=== PATIENT | female | born 1995 | race Caucasian/White ===

== ENCOUNTER 2020-09-30 13:40 | Outpatient (REF) | payer MEDICAID, SELFPAY ==
[2020-09-30 17:30] LABS: MANUAL DIFF FLAG NO
[2020-09-30 17:32] LABS: Basophils Percent Auto 0.3 % (0-2); Eosinophils Percent Auto 0.4 % (0-4); Hematocrit 25.2 % (37-47); Hemoglobin 7.7 g/dl (12.0-16.0); Imm Gran Abs Auto 0.02 X10*3/uL (0.00-0.03); Imm Gran Pct Auto 0.3 % (0.0-0.4); Lymphocytes Absolute Auto 1.5 X10*3/uL (1.2-4.9); Lymphocytes Percent Auto 18.9 % (20-40); Mean Corpuscular HGB Conc 30.6 g/dl (31.0-35.0); Mean Corpuscular Hemoglobin 27.7 pg (27.0-33.0); Mean Corpuscular Volume 90.6 fL (80-98); Mean Platelet Volume 9.7 fL (9.4-12.3); Monocytes Absolute Auto 0.4 X10*3/uL (0.1-1.2); Monocytes Percent Auto 4.8 % (2-11); Neutrophils Percent Auto 75.3 % (45-73); Platelet Count 366 X10*3/uL (160-400); Red Blood Count 2.78 X10*6/uL (4.20-5.50); Red Cell Distribution Width 13.2 % (11.0-16.0)
[2020-09-30 18:22] LABS: Thyroid Stimulating Hormone 1.87 uIU/mL (0.32-4.0)
[2020-10-01 07:31] LABS: Estimated Average Glucose 103 mg/dL; Hemoglobin A1c % 5.2 %
[2020-10-02 06:39] LABS: N. gonorrhoeae RNA TMA NOT DETECTED (NOT DETECTED)
[2020-10-02 15:24] LABS: C. trachomatis RNA TMA NOT DETECTED (NOT DETECTED)
[2020-10-06 17:42] LABS: HPV 16 RNA NOT DETECTED (NOT DETECTED); HPV mRNA E6/E7 rflx Detected (Not Detected)
[2020-10-07 21:32] LABS: Testosterone, Free 7.1 pg/mL (0.1-6.4); Testosterone, Total 48 ng/dL (2-45)
== END 2020-09-30 13:41 | disposition home or self-care (01) ==
LOC: HO.LAB 13:40
PROVIDERS: PCP Family Medicine; Visit Provider Advanced Practice Midwife
DX: Z01.419 Encounter for gynecological examination (general) (routine) without abnormal findings (principal); N92.1 Excessive and frequent menstruation with irregular cycle; E66.9 Obesity, unspecified; Z87.42 Personal history of other diseases of the female genital tract
CPT/HCPCS: 36415; 81025; 83036; 84402; 84403; 84443; 85025; 87491; 87591; 87624; 87625; 88141; 88142; 99212

== ENCOUNTER 2020-10-28 15:16 | Outpatient (REF) | payer MEDICAID, SELFPAY ==
--- NOTE | 2020-10-28 15:21 | US_ITS ---
EXAMINATION: US PELVIS CLINICAL INFORMATION: Excessive and frequent menstruation. COMPARISON: Ultrasound pelvis 01/16/2016. TECHNIQUE: Transabdominal and transvaginal ultrasound of the pelvis is performed. FINDINGS: The uterus is anteverted and anteflexed measuring 10.2 cm in length, 3.6 cm in AP and 5.8 cm in transverse dimension. The endometrium is thickened measuring 1.4 cm. There is homogeneous echotexture of the uterus. There is identification of echogenic scar. There are small anechoic Nabothian cysts seen in the cervix. Right ovary measures 5.4 x 2.9 x 2.2 cm and volume 18.0 mL. There are small follicles seen. Left ovary measures 4.3 x 1.9 x 2.4 cm and volume 10.3 mL. There are small follicles visualized. There is no free fluid in the cul-de-sac. US/US pelvic complete IMPRESSION: Unremarkable uterus. Multiple small follicles in the ovaries. Ovaries are otherwise unremarkable. No free fluid in cul-de-sac.
--- NOTE | 2020-10-28 15:21 | US_ITS ---
EXAMINATION: US PELVIS CLINICAL INFORMATION: Excessive and frequent menstruation. COMPARISON: Ultrasound pelvis 01/16/2016. TECHNIQUE: Transabdominal and transvaginal ultrasound of the pelvis is performed. FINDINGS: The uterus is anteverted and anteflexed measuring 10.2 cm in length, 3.6 cm in AP and 5.8 cm in transverse dimension. The endometrium is thickened measuring 1.4 cm. There is homogeneous echotexture of the uterus. There is identification of echogenic scar. There are small anechoic Nabothian cysts seen in the cervix. Right ovary measures 5.4 x 2.9 x 2.2 cm and volume 18.0 mL. There are small follicles seen. Left ovary measures 4.3 x 1.9 x 2.4 cm and volume 10.3 mL. There are small follicles visualized. There is no free fluid in the cul-de-sac. US/US transvaginal IMPRESSION: Unremarkable uterus. Multiple small follicles in the ovaries. Ovaries are otherwise unremarkable. No free fluid in cul-de-sac.
== END 2020-10-28 15:17 | disposition home or self-care (01) ==
LOC: HO.US 15:16
PROVIDERS: PCP Family Medicine; Visit Provider Advanced Practice Midwife
DX: N92.1 Excessive and frequent menstruation with irregular cycle (principal)
CPT/HCPCS: 76830; 76856

== ENCOUNTER 2020-11-04 11:57 | Outpatient (REF) | payer MEDICAID, SELFPAY | END 2020-11-04 11:58 | disposition home or self-care (01) | LOC: HO.MDS 11:57 | PROVIDERS: PCP Family Medicine; Visit Provider Internal Medicine Medical Oncology | DX: D50.9 Iron deficiency anemia, unspecified (principal) | CPT/HCPCS: 96365; J2916 ==

== ENCOUNTER → 2020-11-11 10:59 | Outpatient (BNVA) | payer MEDICAID, SELFPAY | PROVIDERS: PCP Family Medicine; Visit Provider Advanced Practice Midwife ==

== ENCOUNTER 2020-11-12 08:57 | Outpatient (REF) | payer MEDICAID, SELFPAY | END 2020-11-12 08:58 | disposition home or self-care (01) | LOC: HO.MDS 08:57 | PROVIDERS: PCP Family Medicine; Visit Provider Internal Medicine Medical Oncology | DX: D50.9 Iron deficiency anemia, unspecified (principal) | CPT/HCPCS: 96365; J2916 ==

== ENCOUNTER 2020-11-19 09:07 | Outpatient (REF) | payer MEDICAID, SELFPAY | END 2020-11-19 09:08 | disposition home or self-care (01) | LOC: HO.MDS 09:07 | PROVIDERS: PCP Family Medicine; Visit Provider Internal Medicine Medical Oncology | DX: D50.9 Iron deficiency anemia, unspecified (principal) | CPT/HCPCS: 96365; J2916 ==

== ENCOUNTER 2020-12-03 12:58 | Outpatient (REF) | payer MEDICAID, SELFPAY | END 2020-12-03 12:59 | disposition home or self-care (01) | LOC: HO.MDS 12:58 | PROVIDERS: PCP Family Medicine; Visit Provider Internal Medicine Medical Oncology | DX: D50.9 Iron deficiency anemia, unspecified (principal) | CPT/HCPCS: 96365; J2916 ==

== ENCOUNTER 2020-12-10 08:04 | Outpatient (REF) | payer MEDICAID, SELFPAY ==
[2020-12-10 10:27] LABS: MANUAL DIFF FLAG NO
[2020-12-10 10:30] LABS: Basophils Percent Auto 0.3 % (0-2); Eosinophils Absolute Auto 0.1 X10*3/uL (0.0-0.4); Eosinophils Percent Auto 1.2 % (0-4); Hematocrit 32.9 % (37-47); Hemoglobin 9.9 g/dl (12.0-16.0); Imm Gran Abs Auto 0.01 X10*3/uL (0.00-0.03); Imm Gran Pct Auto 0.2 % (0.0-0.4); Lymphocytes Absolute Auto 1.6 X10*3/uL (1.2-4.9); Lymphocytes Percent Auto 27.6 % (20-40); Mean Corpuscular HGB Conc 30.1 g/dl (31.0-35.0); Mean Corpuscular Hemoglobin 25.3 pg (27.0-33.0); Mean Corpuscular Volume 83.9 fL (80-98); Mean Platelet Volume 8.9 fL (9.4-12.3); Monocytes Absolute Auto 0.3 X10*3/uL (0.1-1.2); Monocytes Percent Auto 5.6 % (2-11); Neutrophils Absolute Auto 3.9 X10*3/uL (2.0-8.3); Neutrophils Percent Auto 65.1 % (45-73); Platelet Count 300 X10*3/uL (160-400); Red Blood Count 3.92 X10*6/uL (4.20-5.50); Red Cell Distribution Width 20.7 % (11.0-16.0); White Blood Count 5.9 X10*3/uL (4.8-10.8)
== END 2020-12-10 08:05 | disposition home or self-care (01) ==
LOC: HO.MDS 08:04
PROVIDERS: PCP Family Medicine; Visit Provider Internal Medicine Medical Oncology
DX: D50.9 Iron deficiency anemia, unspecified (principal)
CPT/HCPCS: 36415; 85025; 96365; J2916

== ENCOUNTER 2020-12-24 13:15 | Outpatient (REF) | payer MEDICAID, SELFPAY | END 2020-12-24 13:16 | disposition home or self-care (01) | LOC: HO.MDS 13:15 | PROVIDERS: PCP Family Medicine; Visit Provider Internal Medicine Medical Oncology | DX: D50.9 Iron deficiency anemia, unspecified (principal) | CPT/HCPCS: 96365; J2916 ==

== ENCOUNTER 2021-06-11 07:54 | Emergency (ER) | payer MEDICAID, SELFPAY ==
[2021-06-11] VITALS (15 sets, daily range): BP systolic 110–141; BP diastolic 55–83; PULSE 68–102; RESP 16–22; TEMP 36.5–37.2; O2SAT 100; BMI 32.9
[2021-06-11 09:01] LABS: MANUAL DIFF FLAG NO
[2021-06-11 09:02] LABS: Basophils Percent Auto 0.2 % (0-2); Eosinophils Percent Auto 0.5 % (0-4); Imm Gran Abs Auto 0.02 X10*3/uL (0.00-0.03); Imm Gran Pct Auto 0.4 % (0.0-0.4); Lymphocytes Percent Auto 17.5 % (20-40); Mean Corpuscular Hemoglobin 16.8 pg (27.0-33.0); Mean Corpuscular Volume 67.1 fL (80-98); Monocytes Absolute Auto 0.3 X10*3/uL (0.1-1.2); Monocytes Percent Auto 5.6 % (2-11); Neutrophils Absolute Auto 4.2 X10*3/uL (2.0-8.3); Neutrophils Percent Auto 75.8 % (45-73); Platelet Count 285 X10*3/uL (160-400); Red Blood Count 2.86 X10*6/uL (4.20-5.50); Red Cell Distribution Width 19.5 % (11.0-16.0); White Blood Count 5.6 X10*3/uL (4.8-10.8)
[2021-06-11 09:13] LABS: Hemoglobin 4.8 g/dl (12.0-16.0)
[2021-06-11 09:14] LABS: Hematocrit 19.2 % (37-47)
--- NOTE | 2021-06-11 09:26 | ECG_ITS ---
Test Reason : ABNORMAL LABS Blood Pressure : / mmHG Vent. Rate : 084 BPM Atrial Rate : 084 BPM P-R Int : 122 ms QRS Dur : 078 ms QT Int : 348 ms P-R-T Axes : 038 068 010 degrees QTc Int : 411 ms Normal sinus rhythm Nonspecific T wave abnormality Abnormal ECG When compared with ECG of 30-NOV-2014 16:07, Heart rate has decreased Referred By: Anuja Nance Electronically Signed By:CECILIA TOMLINSON
[2021-06-11 09:27] LABS: HCG Quantitative < 2 mIU/mL
--- NOTE | 2021-06-11 09:35 | ED.RECABL ---
HPI - Recheck/Abnormal Lab/Rx General Chief Complaint: Recheck/Abnormal Lab/Rx <Anuja Nance PA-C - Last Filed: 06/11/21 15:29> Stated Complaint: abnormal labs <Anuja Nance PA-C - Last Filed: 06/11/21 15:29> Time Seen by Provider: 06/11/21 08:43 <Anuja Nance PA-C - Last Filed: 06/11/21 15:29> Source: patient <SOPHIA Miranda Last Filed: 06/11/21 15:29> Mode of arrival: ambulatory <Anuja Nance PA-C - Last Filed: 06/11/21 15:29> Limitations: no limitations <Anuja Nance PA-C - Last Filed: 06/11/21 15:29> History of Present Illness HPI narrative: Patient is a 25-year-old female with past med hx of PCOS, 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 Rizvi presents with low H&H. Patient states she has had consistent bleeding for 7 months, she states it only stopped for a period of 2 weeks at 1 point, she states she typically soaks a tampon and a pad between 30 and 60 minutes. She admits to dizziness, weakness, shortness of breath with exertion and headaches. She states she was supposed to get a colposcopy by Dr. Rizvi but her bleeding has been to much for him to do it. She states she has otherwise not found a reason for her bleeding. Patient states her symptoms were getting a little worse yesterday so she went to her PCP and had labs done which showed a low hemoglobin so she was sent here for blood. <Anuja Nance PA-C - Last Filed: 06/11/21 15:29> Related Data Home Medications: Home Medications Medication Instructions Recorded Confirmed ferrous sulfate 324 mg (65 mg 324 mg PO DAILY 10/28/20 10/28/20 iron) tablet,delayed release Previous Rx's Medication Instructions Recorded ferrous sulfate 325 mg (65 mg 325 mg PO DAILY #30 tab 06/11/21 iron) tablet medroxyprogesterone 10 mg tablet 10 mg PO DAILY #20 tab 06/11/21 (Provera) <Anuja Nance PA-C - Last Filed: 06/11/21 15:29> Allergies/Adverse Reactions: Allergies Allergy/AdvReac Type Severity Reaction Status Date / Time No Known Allergies Allergy Verified 11/11/20 11:00 [No Known Allergies*] <Anuja Nance PA-C - Last Filed: 06/11/21 15:29> Review of Systems Review of Systems: Yes all other systems are reviewed and are negative <Anuja Nance PA-C - Last Filed: 06/11/21 15:29> [facility] Past Medical History Medical History: Medical History (Updated 06/12/21 @ 00:01 by Radha Beyer) Gestational diabetes HTN (hypertension) Irregular periods <Anuja Nance PA-C - Last Filed: 06/11/21 15:29> Surgical History: Surgical History (Updated 10/28/20 @ 09:39 by Svetlana Briceño MD) Hx of section <Anuja Nance PA-C - Last Filed: 06/11/21 15:29> Family History Family History: Family History (Updated 10/28/20 @ 09:32 by Lianet Caraballo RN) Maternal Grandfather HTN (hypertension) Mother HTN (hypertension) Diabetes Father Diabetes HTN (hypertension) Paternal Grandmother Brain cancer HTN (hypertension) Maternal Grandmother HTN (hypertension) Paternal Aunt No problems noted. Paternal Grandmother No problems noted. Paternal Aunt No problems noted. <Anuja Nance PA-C - Last Filed: 06/11/21 15:29> Social History Social History: Social History (Updated 10/28/20 @ 09:32 by Lianet Caraballo RN) Alcohol intake: never Patient Tobacco Use Status: Never used Tobacco Substance Use Type: Marijuana Gender identity: Female <Anuja Nance PA-C - Last Filed: 06/11/21 15:29> Physical Exam Vital Signs: Vital Signs: Last Vital Signs Temp 98.8 F 06/11/21 16:17 Pulse 74 06/11/21 20:12 Resp 16 06/11/21 20:12 BP 120/83 06/11/21 20:12 Pulse Ox 100 06/11/21 20:12 Body Mass Index 32.9 <Anuja Nance PA-C - Last Filed: 06/11/21 15:29> Vital Signs: Last Vital Signs Temp 98.8 F 06/11/21 16:17 Pulse 74 06/11/21 20:12 Resp 16 06/11/21 20:12 BP 120/83 06/11/21 20:12 Pulse Ox 100 06/11/21 20:12 Body Mass Index 32.9 <JONAH Marquis-BC - Last Filed: 06/13/21 01:11> Const: General: cooperative, healthy appearing, comfortable, no acute distress and well developed <Anuja Nance PA-C - Last Filed: 06/11/21 15:29> Orientation/consciousness: patient oriented x3 <Anuja Nance PA-C - Last Filed: 06/11/21 15:29> Limitations: no limitations <Anuja Nance PA-C - Last Filed: 06/11/21 15:29> HENMT: Head: Yes normal to inspection <Anuja Nance PA-C - Last Filed: 06/11/21 15:29> Eyes: General: appearance normal, both eyes and all related structures <Anuja Nance PA-C - Last Filed: 06/11/21 15:29> Neck: Neck: Yes normal visual inspection and Yes full ROM <Anuja Nance PA-C - Last Filed: 06/11/21 15:29> Resp: Effort & Inspection: normal respiratory effort and able to speak in complete sentences <Anuja Nance PA-C - Last Filed: 06/11/21 15:29> Auscultation: clear to auscultation bilaterally <Anuja Nance PA-C - Last Filed: 06/11/21 15:29> Cardio: Rate: regular rate <Anuja Nance PA-C - Last Filed: 06/11/21 15:29> Rhythm: regular rhythm <Anuja Nance PA-C - Last Filed: 06/11/21 15:29> Heart sounds: normal S1 and S2 <Anuja Nance PA-C - Last Filed: 06/11/21 15:29> GI: Inspection: Yes normal to inspection <Anuja Nance PA-C - Last Filed: 06/11/21 15:29> Palpation (GI): Soft to palpation and nontender <Anuja Nance PA-C - Last Filed: 06/11/21 15:29> Skin: General skin exam: no rashes or lesions noted <Anuja Nance PA-C - Last Filed: 06/11/21 15:29> Neuro: General: patient oriented x3 <Anuja Nance PA-C - Last Filed: 06/11/21 15:29> Extrem: General: Yes normal to inspection <Anuja Nance PA-C - Last Filed: 06/11/21 15:29> Course Course Course Narrative: Patient is a 25-year-old female with past med hx of PCOS, 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 Rizvi presents with low H&H. VSS. Hemoglobin 4.8, Hematocrit 19.2, Type and screen pending. Will order 2 U RBC's but will likely need more. Plan on admission. Text to Dr. Rizvi. <Anuja Nance PA-C - Last Filed: 06/11/21 15:29> Reevaluation(s) Reevaluation #1: Spoke with Dr. Rizvi he, he recommended returning the hemoglobin back to 7-9, starting patient on iron and Provera, he will see in office either tomorrow or Tuesday for a biopsy and a colposcopy. <SOPHIA Miranda Last Filed: 06/11/21 15:29> Time: 10:00 <SOPHIA Miranda Last Filed: 06/11/21 15:29> Reevaluation #2: Dr. Rizvi to examine patient. After exam, Dr Rizvi stated pt's speculum exam was unremarkable, no hemmorrhage. <Anuja Nance PA-C - Last Filed: 06/11/21 15:29> Time: 11:14 <Anuja Nance PA-C - Last Filed: 06/11/21 15:29> Reevaluation #3: Patient's hemoglobin up to 7.4, will give 1 more unit RBC's then recheck CBC then likely discharge with follow-up to Dr. Rizvi tomorrow. <Anuja Nance PA-C - Last Filed: 06/11/21 15:29> Time: 15:29 <Anuja Nance PA-C - Last Filed: 06/11/21 15:29> Additional Reevaluation(s): H&H markedly improved 9.2 and 30.4. Patient reports that she is feeling better. She has an appointment with Dr. Riziv on Tuesday. Patient is going to be discharged home, however she was instructed if she will have increased vaginal bleeding or worsening symptoms to return to emergency department. <MEGAN Marquis - Last Filed: 06/13/21 01:11> MDM - Recheck/Abnormal Lab/Rx Medical Records Attestation: I reviewed the patient's medical records. <Anuja Nance PA-C - Last Filed: 06/11/21 15:29> Lab Data Attestation: I reviewed the patient's lab results. <Anuja Nance PA-C - Last Filed: 06/11/21 15:29> Result diagrams: : 06/11/21 18:29 06/11/21 08:51 <Anuja Nance PA-C - Last Filed: 06/11/21 15:29> Labs: Lab Results 06/11/21 06/11/21 06/11/21 Range/Units 08:51 08:51 08:52 WBC 5.6 (4.8-10.8) X10*3/uL RBC 2.86 L D (4.20-5.50) X10*6/uL Hgb 4.8 L* D (12.0-16.0) g/dl Hct 19.2 L* D (37-47) % MCV 67.1 L (80-98) fL MCH 16.8 L (27.0-33.0) pg MCHC 25.0 L (31.0-35.0) g/dl RDW 19.5 H (11.0-16.0) % Plt Count 285 (160-400) X10*3/uL MPV 10.0 (9.4-12.3) fL Immature Gran % (Auto) 0.4 (0.0-0.4) % Neut % (Auto) 75.8 H (45-73) % Lymph % (Auto) 17.5 L (20-40) % Mcclain % (Auto) 5.6 (2-11) % Eos % (Auto) 0.5 (0-4) % Baso % (Auto) 0.2 (0-2) % Lymph # (Auto) 1.0 L (1.2-4.9) X10*3/uL Mcclain # (Auto) 0.3 (0.1-1.2) X10*3/uL Eos # (Auto) 0.0 (0.0-0.4) X10*3/uL Baso # (Auto) 0.0 (0.0-0.2) X10*3/uL Abs Immat Gran (auto) 0.02 (0.00-0.03) X10*3/uL Absolute Neuts (auto) 4.2 (2.0-8.3) X10*3/uL Absolute Nucleated RBC 0.000 (0.0-0.012) X10*3/uL Nucleated RBC % (auto) 0.0 (0.0-0.2) /100WBC Smear Path Review SEE NOTE Sodium 138 (135-145) mmol/L Potassium 4.3 (3.3-5.1) mmol/L Chloride 107 (96-108) mmol/L Carbon Dioxide 26 (22-29) mmol/L Anion Gap 9 L (12-20) BUN 11 (9-16) mg/dL Creatinine 0.75 (0.5-1.4) mg/dL Estim Creat Clear Calc 126.9 Estimated GFR > 60 Random Glucose 105 (60-115) mg/dL Calcium 9.0 (8.4-10.2) mg/dL Total Bilirubin 0.3 (0.0-1.0) mg/dL Direct Bilirubin < 0.2 (0.0-0.5) mg/dL AST 11 D (5-31) U/L ALT 12 (0-31) U/L Alkaline Phosphatase 53 (39-117) U/L Total Protein 6.4 L (6.5-8.0) g/dL Albumin 4.0 (3.5-5.0) g/dL Beta HCG, Quant < 2 mIU/mL Chlam trachomat DNA PCR (Not Detect.) N.gonorrhoeae DNA (PCR) (Not Detect.) Blood Type O Negative Antibody Screen NEGATIVE Crossmatch See Detail 06/11/21 06/11/21 06/11/21 Range/Units 10:02 11:50 15:13 WBC 8.0 (4.8-10.8) X10*3/uL RBC 3.35 L (4.20-5.50) X10*6/uL Hgb 7.4 L D (12.0-16.0) g/dl Hct 25.1 L D (37-47) % MCV 74.9 L D (80-98) fL MCH 22.1 L (27.0-33.0) pg MCHC 29.5 L (31.0-35.0) g/dl RDW 25.6 H (11.0-16.0) % Plt Count 287 (160-400) X10*3/uL MPV 9.8 (9.4-12.3) fL Immature Gran % (Auto) (0.0-0.4) % Neut % (Auto) (45-73) % Lymph % (Auto) (20-40) % Mcclain % (Auto) (2-11) % Eos % (Auto) (0-4) % Baso % (Auto) (0-2) % Lymph # (Auto) (1.2-4.9) X10*3/uL Mcclain # (Auto) (0.1-1.2) X10*3/uL Eos # (Auto) (0.0-0.4) X10*3/uL Baso # (Auto) (0.0-0.2) X10*3/uL Abs Immat Gran (auto) (0.00-0.03) X10*3/uL Absolute Neuts (auto) (2.0-8.3) X10*3/uL Absolute Nucleated RBC 0.000 (0.0-0.012) X10*3/uL Nucleated RBC % (auto) 0.0 (0.0-0.2) /100WBC Smear Path Review Sodium (135-145) mmol/L Potassium (3.3-5.1) mmol/L Chloride (96-108) mmol/L Carbon Dioxide (22-29) mmol/L Anion Gap (12-20) BUN (9-16) mg/dL Creatinine (0.5-1.4) mg/dL Estim Creat Clear Calc Estimated GFR Random Glucose (60-115) mg/dL Calcium (8.4-10.2) mg/dL Total Bilirubin (0.0-1.0) mg/dL Direct Bilirubin (0.0-0.5) mg/dL AST (5-31) U/L ALT (0-31) U/L Alkaline Phosphatase (39-117) U/L Total Protein (6.5-8.0) g/dL Albumin (3.5-5.0) g/dL Beta HCG, Quant mIU/mL Chlam trachomat DNA PCR NOT DETECTED (Not Detect.) N.gonorrhoeae DNA (PCR) NOT DETECTED (Not Detect.) Blood Type O Negative Antibody Screen NEGATIVE Crossmatch See Detail 06/11/21 Range/Units 18:29 WBC 8.2 (4.8-10.8) X10*3/uL RBC 3.96 L (4.20-5.50) X10*6/uL Hgb 9.2 L D (12.0-16.0) g/dl Hct 30.4 L D (37-47) % MCV 76.8 L (80-98) fL MCH 23.2 L (27.0-33.0) pg MCHC 30.3 L (31.0-35.0) g/dl RDW 25.4 H (11.0-16.0) % Plt Count 268 (160-400) X10*3/uL MPV 10.5 (9.4-12.3) fL Immature Gran % (Auto) 0.4 (0.0-0.4) % Neut % (Auto) 64.9 (45-73) % Lymph % (Auto) 27.1 (20-40) % Mcclain % (Auto) 6.5 (2-11) % Eos % (Auto) 0.7 (0-4) % Baso % (Auto) 0.4 (0-2) % Lymph # (Auto) 2.2 (1.2-4.9) X10*3/uL Mcclain # (Auto) 0.5 (0.1-1.2) X10*3/uL Eos # (Auto) 0.1 (0.0-0.4) X10*3/uL Baso # (Auto) 0.0 (0.0-0.2) X10*3/uL Abs Immat Gran (auto) 0.03 (0.00-0.03) X10*3/uL Absolute Neuts (auto) 5.3 (2.0-8.3) X10*3/uL Absolute Nucleated RBC 0.000 (0.0-0.012) X10*3/uL Nucleated RBC % (auto) 0.0 (0.0-0.2) /100WBC Smear Path Review Sodium (135-145) mmol/L Potassium (3.3-5.1) mmol/L Chloride (96-108) mmol/L Carbon Dioxide (22-29) mmol/L Anion Gap (12-20) BUN (9-16) mg/dL Creatinine (0.5-1.4) mg/dL Estim Creat Clear Calc Estimated GFR Random Glucose (60-115) mg/dL Calcium (8.4-10.2) mg/dL Total Bilirubin (0.0-1.0) mg/dL Direct Bilirubin (0.0-0.5) mg/dL AST (5-31) U/L ALT (0-31) U/L Alkaline Phosphatase (39-117) U/L Total Protein (6.5-8.0) g/dL Albumin (3.5-5.0) g/dL Beta HCG, Quant mIU/mL Chlam trachomat DNA PCR (Not Detect.) N.gonorrhoeae DNA (PCR) (Not Detect.) Blood Type Antibody Screen Crossmatch <Anuja Nance PA-C - Last Filed: 06/11/21 15:29> Lab Results 06/11/21 06/11/21 06/11/21 Range/Units 08:51 08:51 08:52 WBC 5.6 (4.8-10.8) X10*3/uL RBC 2.86 L D (4.20-5.50) X10*6/uL Hgb 4.8 L* D (12.0-16.0) g/dl Hct 19.2 L* D (37-47) % MCV 67.1 L (80-98) fL MCH 16.8 L (27.0-33.0) pg MCHC 25.0 L (31.0-35.0) g/dl RDW 19.5 H (11.0-16.0) % Plt Count 285 (160-400) X10*3/uL MPV 10.0 (9.4-12.3) fL Immature Gran % (Auto) 0.4 (0.0-0.4) % Neut % (Auto) 75.8 H (45-73) % Lymph % (Auto) 17.5 L (20-40) % Mcclain % (Auto) 5.6 (2-11) % Eos % (Auto) 0.5 (0-4) % Baso % (Auto) 0.2 (0-2) % Lymph # (Auto) 1.0 L (1.2-4.9) X10*3/uL Mcclain # (Auto) 0.3 (0.1-1.2) X10*3/uL Eos # (Auto) 0.0 (0.0-0.4) X10*3/uL Baso # (Auto) 0.0 (0.0-0.2) X10*3/uL Abs Immat Gran (auto) 0.02 (0.00-0.03) X10*3/uL Absolute Neuts (auto) 4.2 (2.0-8.3) X10*3/uL Absolute Nucleated RBC 0.000 (0.0-0.012) X10*3/uL Nucleated RBC % (auto) 0.0 (0.0-0.2) /100WBC Smear Path Review SEE NOTE Sodium 138 (135-145) mmol/L Potassium 4.3 (3.3-5.1) mmol/L Chloride 107 (96-108) mmol/L Carbon Dioxide 26 (22-29) mmol/L Anion Gap 9 L (12-20) BUN 11 (9-16) mg/dL Creatinine 0.75 (0.5-1.4) mg/dL Estim Creat Clear Calc 126.9 Estimated GFR > 60 Random Glucose 105 (60-115) mg/dL Calcium 9.0 (8.4-10.2) mg/dL Total Bilirubin 0.3 (0.0-1.0) mg/dL Direct Bilirubin < 0.2 (0.0-0.5) mg/dL AST 11 D (5-31) U/L ALT 12 (0-31) U/L Alkaline Phosphatase 53 (39-117) U/L Total Protein 6.4 L (6.5-8.0) g/dL Albumin 4.0 (3.5-5.0) g/dL Beta HCG, Quant < 2 mIU/mL Chlam trachomat DNA PCR (Not Detect.) N.gonorrhoeae DNA (PCR) (Not Detect.) Blood Type O Negative Antibody Screen NEGATIVE Crossmatch See Detail 06/11/21 06/11/21 06/11/21 Range/Units 10:02 11:50 15:13 WBC 8.0 (4.8-10.8) X10*3/uL RBC 3.35 L (4.20-5.50) X10*6/uL Hgb 7.4 L D (12.0-16.0) g/dl Hct 25.1 L D (37-47) % MCV 74.9 L D (80-98) fL MCH 22.1 L (27.0-33.0) pg MCHC 29.5 L (31.0-35.0) g/dl RDW 25.6 H (11.0-16.0) % Plt Count 287 (160-400) X10*3/uL MPV 9.8 (9.4-12.3) fL Immature Gran % (Auto) (0.0-0.4) % Neut % (Auto) (45-73) % Lymph % (Auto) (20-40) % Mcclain % (Auto) (2-11) % Eos % (Auto) (0-4) % Baso % (Auto) (0-2) % Lymph # (Auto) (1.2-4.9) X10*3/uL Mcclain # (Auto) (0.1-1.2) X10*3/uL Eos # (Auto) (0.0-0.4) X10*3/uL Baso # (Auto) (0.0-0.2) X10*3/uL Abs Immat Gran (auto) (0.00-0.03) X10*3/uL Absolute Neuts (auto) (2.0-8.3) X10*3/uL Absolute Nucleated RBC 0.000 (0.0-0.012) X10*3/uL Nucleated RBC % (auto) 0.0 (0.0-0.2) /100WBC Smear Path Review Sodium (135-145) mmol/L Potassium (3.3-5.1) mmol/L Chloride (96-108) mmol/L Carbon Dioxide (22-29) mmol/L Anion Gap (12-20) BUN (9-16) mg/dL Creatinine (0.5-1.4) mg/dL Estim Creat Clear Calc Estimated GFR Random Glucose (60-115) mg/dL Calcium (8.4-10.2) mg/dL Total Bilirubin (0.0-1.0) mg/dL Direct Bilirubin (0.0-0.5) mg/dL AST (5-31) U/L ALT (0-31) U/L Alkaline Phosphatase (39-117) U/L Total Protein (6.5-8.0) g/dL Albumin (3.5-5.0) g/dL Beta HCG, Quant mIU/mL Chlam trachomat DNA PCR NOT DETECTED (Not Detect.) N.gonorrhoeae DNA (PCR) NOT DETECTED (Not Detect.) Blood Type O Negative Antibody Screen NEGATIVE Crossmatch See Detail 06/11/21 Range/Units 18:29 WBC 8.2 (4.8-10.8) X10*3/uL RBC 3.96 L (4.20-5.50) X10*6/uL Hgb 9.2 L D (12.0-16.0) g/dl Hct 30.4 L D (37-47) % MCV 76.8 L (80-98) fL MCH 23.2 L (27.0-33.0) pg MCHC 30.3 L (31.0-35.0) g/dl RDW 25.4 H (11.0-16.0) % Plt Count 268 (160-400) X10*3/uL MPV 10.5 (9.4-12.3) fL Immature Gran % (Auto) 0.4 (0.0-0.4) % Neut % (Auto) 64.9 (45-73) % Lymph % (Auto) 27.1 (20-40) % Mcclain % (Auto) 6.5 (2-11) % Eos % (Auto) 0.7 (0-4) % Baso % (Auto) 0.4 (0-2) % Lymph # (Auto) 2.2 (1.2-4.9) X10*3/uL Mcclain # (Auto) 0.5 (0.1-1.2) X10*3/uL Eos # (Auto) 0.1 (0.0-0.4) X10*3/uL Baso # (Auto) 0.0 (0.0-0.2) X10*3/uL Abs Immat Gran (auto) 0.03 (0.00-0.03) X10*3/uL Absolute Neuts (auto) 5.3 (2.0-8.3) X10*3/uL Absolute Nucleated RBC 0.000 (0.0-0.012) X10*3/uL Nucleated RBC % (auto) 0.0 (0.0-0.2) /100WBC Smear Path Review Sodium (135-145) mmol/L Potassium (3.3-5.1) mmol/L Chloride (96-108) mmol/L Carbon Dioxide (22-29) mmol/L Anion Gap (12-20) BUN (9-16) mg/dL Creatinine (0.5-1.4) mg/dL Estim Creat Clear Calc Estimated GFR Random Glucose (60-115) mg/dL Calcium (8.4-10.2) mg/dL Total Bilirubin (0.0-1.0) mg/dL Direct Bilirubin (0.0-0.5) mg/dL AST (5-31) U/L ALT (0-31) U/L Alkaline Phosphatase (39-117) U/L Total Protein (6.5-8.0) g/dL Albumin (3.5-5.0) g/dL Beta HCG, Quant mIU/mL Chlam trachomat DNA PCR (Not Detect.) N.gonorrhoeae DNA (PCR) (Not Detect.) Blood Type Antibody Screen Crossmatch <Paula Ayoub, W[employer]IFIER OPERATOR-BC - Last Filed: 06/13/21 01:11> ECG Data Attestation: I personally reviewed and interpreted this ECG as follows: <Anuja Nance PA-C - Last Filed: 06/11/21 15:29> ECG interpretation date: 06/11/21 <Anuja Nance PA-C - Last Filed: 06/11/21 15:29> ECG interpretation time: 10:33 <Anuja Nance PA-C - Last Filed: 06/11/21 15:29> Prior ECG tracings: not available for review <Anuja Nance PA-C - Last Filed: 06/11/21 15:29> Interpretation: NSR 84bpm, no acute ST or T-wave changes <Anuja Nance PA-C - Last Filed: 06/11/21 15:29> Discharge Plan Discharge Clinical Impression: Abnormal vaginal bleeding, Anemia <Anuja Nance PA-C - Last Filed: 06/11/21 15:29> Patient Disposition: Home, Self-Care <Anuja Nance PA-C - Last Filed: 06/11/21 15:29> Instructions: Anemia (ED) <Anuja Nance PA-C - Last Filed: 06/11/21 15:29> Additional Instructions: I have sent a prescription for iron pills and a control pill by the name of Provera to your pharmacy, please start taking each 1 of these pills daily. Please be sure to follow up with Dr. Rizvi tomorrow, he is aware of your issue and would like to do a biopsy and colposcopy on you RUBINA. If you feel weak, dizzy, short of breath or have chest pain, please return to the emergency department. <Anuja Nance PA-C - Last Filed: 06/11/21 15:29> Prescriptions: New ferrous sulfate 325 mg (65 mg iron) tablet 325 mg PO DAILY Qty: 30 RF: 0 medroxyprogesterone [Provera] 10 mg tablet 10 mg PO DAILY Qty: 20 RF: 0 No Action ferrous sulfate 324 mg (65 mg iron) tablet,delayed release (DR/EC) 324 mg PO DAILY RF: 0 <Anuja Nance PA-C - Last Filed: 06/11/21 15:29> Referrals: Hermes Rizvi MD [Physician] - 1 day (bx, colpo and follow up for vag bleeding) <Anuja Nance PA-C - Last Filed: 06/11/21 15:29> Interventions: ED Discharge Assessment Last Done: 06/11/21 20:16 <Anuja Nance PA-C - Last Filed: 06/11/21 15:29> Discharge Date/Time: 06/11/21 20:18 <Anuja Nance PA-C - Last Filed: 06/11/21 15:29>
[2021-06-11 09:40] LABS: Alanine Aminotransferase 12 U/L (0-31); Alkaline Phosphatase 53 U/L (39-117); Anion Gap 9 (12-20); Aspartate Amino Transferase 11 U/L (5-31); Bilirubin Direct < 0.2 mg/dL (0.0-0.5); Bilirubin Total 0.3 mg/dL (0.0-1.0); Blood Urea Nitrogen 11 mg/dL (9-16); Carbon Dioxide 26 mmol/L (22-29); Chloride 107 mmol/L (96-108); Creatinine Clr Calc Pharmacy 126.9; Estimated Glomerular Filt Rate > 60; Glucose Random 105 mg/dL (60-115); Potassium 4.3 mmol/L (3.3-5.1); Sodium 138 mmol/L (135-145); Total Protein 6.4 g/dL (6.5-8.0)
--- NOTE | 2021-06-11 10:16 | P.CONOB_ITS ---
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 Patient was seen in the office by a Pat Villar CNM in September of 2020 her H&H then was 7.7/25.2, ultrasound was unremarkable, Pap smear showed low-grade JOSHUA/HPV positive. The patient was scheduled for colposcopy and further discussion of options of treatment but did not show up for her appointment. Since then the patient has had multiple iron transfusion by Hematology and is continuously having vaginal bleeding with passage of blood clots and abdominal cramping. In the emergency room today H&H was 4.8/19.2, the patient so her PCP yesterday, she was started on Provera 10 mg p.o. q.d. which she started today and is currently having minimal to no vaginal bleeding cc:: CC: RFID SYSTEMS ARCHITECT - Review of Systems Review of Systems ROS Unobtainable: All systems reviewed & are unremarkable except as noted in HPI and below Cardiovascular: Denies Palpatations, Loss of consciousness or Chest pain Respiratory: Denies Cough, Wheezing or Shortness of breath Musculoskeletal: Denies Low back pain Gastrointestinal: Denies Heartburn, Constipation, Diarrhea, Nausea or Vomiting Genitourinary: Denies Pain with urination, Burning with urination or Urinary frequency Neurological: Denies Migranes Psychological: Denies Depression OB [facility] Past Medical History Medical History (Updated 06/11/21 @ 11:25 by Hermes Rizvi MD) Gestational diabetes HTN (hypertension) Irregular periods Family History Family History (Updated 10/28/20 @ 09:32 by Lianet Caraballo RN) Maternal Grandfather HTN (hypertension) Mother HTN (hypertension) Diabetes Father Diabetes HTN (hypertension) Paternal Grandmother Brain cancer HTN (hypertension) Maternal Grandmother HTN (hypertension) Paternal Aunt No problems noted. Paternal Grandmother No problems noted. Paternal Aunt No problems noted. Surgical History Surgical History (Updated 10/28/20 @ 09:39 by Svetlana Briceño MD) Hx of section Social History Social History (Updated 10/28/20 @ 09:32 by Lianet Caraballo RN) Alcohol intake: never Patient Tobacco Use Status: Never used Tobacco Use of substances other than those prescribed or required for medical reasons: Yes Substance Use Type: Marijuana Advance Directives: No Advance Directives Information Provided: No Patient : No Gender identity: Female Meds Allergies Allergy/AdvReac Type Severity Reaction Status Date / Time No Known Allergies Allergy Verified 11/11/20 11:00 [No Known Allergies*] Home Medications Medication Instructions Recorded Confirmed Last Taken Type ferrous sulfate 324 mg (65 mg 324 mg PO DAILY 10/28/20 10/28/20 Unknown History iron) tablet,delayed release BUDGET AND POLICY ANALYST Physical Exam Vitals Vital signs: Temp Pulse Resp BP Pulse Ox 98.8 F 90 16 127/73 100 06/11/21 08:28 06/11/21 08:28 06/11/21 08:28 06/11/21 08:28 06/11/21 08:28 Body Mass Index 32.9 Constitutional General Appearance: Healthy appearing, Well-nourished and Well-developed Psychiatric Mood and Affect: active and alert, normal mood and normal affect Skin Appearance: No rashes and No lesions Lungs Respiratory Effort: No intercostal retractions Auscultation: Clear to auscultation Cardiovascular Auscultation: RRR Abdomen Auscultation/Inspection/Palpation: Normal bowel sounds, Soft, Non-distended and No tenderness Female Genitalia (Pelvic) Bladder/Urethra: Normal meatus Vulva: No lesions Vagina: Nontender, No erythema and Normal discharge Cervix: Grossly normal Uterus: Normal size Adnexa/Parametria: Adnexal Tenderness: None (No vaginal bleeding) BUDGET AND POLICY ANALYST - Results Labs CBC & Chem 7: 06/11/21 08:52 06/11/21 08:51 Labs: Short CBC 06/11/21 Range/Units 08:52 WBC 5.6 (4.8-10.8) X10*3/uL Hgb 4.8 L* D (12.0-16.0) g/dl Hct 19.2 L* D (37-47) % Plt Count 285 (160-400) X10*3/uL BMP 06/11/21 08:51 Sodium 138 Potassium 4.3 Chloride 107 Carbon Dioxide 26 BUN 11 Creatinine 0.75 Calcium 9.0 Liver Function 06/11/21 Range/Units 08:51 Total Bilirubin 0.3 (0.0-1.0) mg/dL Direct Bilirubin < 0.2 (0.0-0.5) mg/dL AST 11 D (5-31) U/L ALT 12 (0-31) U/L Alkaline Phosphatase 53 (39-117) U/L Albumin 4.0 (3.5-5.0) g/dL Antibody Screen Antibody Screen NEGATIVE 06/11/21 08:51 Assessment and Plan (1) Menometrorrhagia: Status: Acute Discussed with the patient the treatment including cyclic Provera, Lyst madhav,? control pills, Mirena IUD. All pros, cons, risks and benefits if each option was discussed with the patient and the patient decided to go ahead with Mirena IUD so a more detailed discussion about it was conducted including mechanism of action, risks (uterine perforation, infection, injury to bladder, bowel, displacement, and others) benefits (hypo menorrhea, amenorrhea, ...). GC/CT were taken and the patient will be scheduled for IUD insertion in the office. Since the patient has no vaginal bleeding today, Recommended for the patient to continue Provera 10 mg p.o. q.d. follow-up in the office in the coming 2 days, for endometrial biopsy to rule out endometrial pathology including hyperplasia malignancy or atypia and Mirena IUD insertion (2) Anemia: Qualifiers: Anemia type: unspecified type Qualified Code(s): D64.9 - Anemia, unspecified Status: Acute Recommend to transfuse the patient with 2 units of packed RBCs, repeat CBC after transfusion, if the patient is stable, she is to be discharged home on iron sulfate 325 mg p.o. t.i.d. (3) LGSIL (low grade squamous intraepithelial dysplasia): Status: Acute Discussed with the patient the result of her abnormal pap, its significance, risk of progression, persistence, and regression if untreated. the false positive/negative rate being a screening test, the need for diagnostic test -colposcopy, biopsy, endocervical curettage.? The patient verbalized understanding and agreed with the plan, all questions answered.
--- NOTE | 2021-06-11 11:17 | PC.NURSE ---
DORIAN JACOBSON PERFORMING PELVIC EXAM IN A DIFFERENT ROOM WITH PLANNING AND ANALYSIS MANAGER.
[2021-06-11 13:28] LABS: CT PCR NOT DETECTED (Not Detect.); NG PCR NOT DETECTED (Not Detect.)
[2021-06-11 15:19] LABS: Hematocrit 25.1 % (37-47); Hemoglobin 7.4 g/dl (12.0-16.0); Mean Corpuscular HGB Conc 29.5 g/dl (31.0-35.0); Mean Corpuscular Hemoglobin 22.1 pg (27.0-33.0); Mean Corpuscular Volume 74.9 fL (80-98); Mean Platelet Volume 9.8 fL (9.4-12.3); Platelet Count 287 X10*3/uL (160-400); Red Blood Count 3.35 X10*6/uL (4.20-5.50); Red Cell Distribution Width 25.6 % (11.0-16.0)
[2021-06-11 18:34] LABS: MANUAL DIFF FLAG NO
[2021-06-11 18:38] LABS: Basophils Percent Auto 0.4 % (0-2); Eosinophils Absolute Auto 0.1 X10*3/uL (0.0-0.4); Eosinophils Percent Auto 0.7 % (0-4); Hematocrit 30.4 % (37-47); Hemoglobin 9.2 g/dl (12.0-16.0); Imm Gran Abs Auto 0.03 X10*3/uL (0.00-0.03); Imm Gran Pct Auto 0.4 % (0.0-0.4); Lymphocytes Absolute Auto 2.2 X10*3/uL (1.2-4.9); Lymphocytes Percent Auto 27.1 % (20-40); Mean Corpuscular HGB Conc 30.3 g/dl (31.0-35.0); Mean Corpuscular Hemoglobin 23.2 pg (27.0-33.0); Mean Corpuscular Volume 76.8 fL (80-98); Mean Platelet Volume 10.5 fL (9.4-12.3); Monocytes Absolute Auto 0.5 X10*3/uL (0.1-1.2); Monocytes Percent Auto 6.5 % (2-11); Neutrophils Absolute Auto 5.3 X10*3/uL (2.0-8.3); Neutrophils Percent Auto 64.9 % (45-73); Platelet Count 268 X10*3/uL (160-400); Red Blood Count 3.96 X10*6/uL (4.20-5.50); Red Cell Distribution Width 25.4 % (11.0-16.0); White Blood Count 8.2 X10*3/uL (4.8-10.8)
== END 2021-06-11 20:18 | disposition home or self-care (01) ==
PROVIDERS: Emergency Medicine; Obstetrics & Gynecology; Physician Assistant; Emergency Provider Emergency Medicine Emergency Medical Services; PCP Family Medicine
DX: N92.1 Excessive and frequent menstruation with irregular cycle (principal); C71.1 Malignant neoplasm of frontal lobe; D64.9 Anemia, unspecified; N93.8 Other specified abnormal uterine and vaginal bleeding; F12.90 Cannabis use, unspecified, uncomplicated; Z79.899 Other long term (current) drug therapy
CPT/HCPCS: 36415; 36430; 80048; 80076; 84702; 85025; 85027; 86850; 86900; 86901; 86923; 87491; 87591; 93005; 99285; P9016

== ENCOUNTER 2021-06-16 13:56 | Outpatient (REF) | payer MEDICAID, SELFPAY | END 2021-06-16 13:57 | disposition home or self-care (01) | LOC: HO.LAB 13:56 | PROVIDERS: PCP Family Medicine; Visit Provider Obstetrics & Gynecology | DX: Z30.430 Encounter for insertion of intrauterine contraceptive device (principal); R87.612 Low grade squamous intraepithelial lesion on cytologic smear of cervix (LGSIL); N92.1 Excessive and frequent menstruation with irregular cycle; D64.9 Anemia, unspecified | CPT/HCPCS: 57454; 58100; 58110; 58300; 88305; 99212; J7298 ==

== ENCOUNTER → 2021-06-23 11:58 | Outpatient (BNVA) | payer MEDICAID, SELFPAY | PROVIDERS: PCP Family Medicine; Visit Provider Obstetrics & Gynecology ==

== ENCOUNTER → 2021-08-12 09:19 | Outpatient (BNVA) | payer MEDICAID, SELFPAY | PROVIDERS: PCP Family Medicine; Visit Provider Obstetrics & Gynecology | DX: Z30.431 Encounter for routine checking of intrauterine contraceptive device (principal); D64.9 Anemia, unspecified | CPT/HCPCS: 99212 ==

== ENCOUNTER → 2021-09-15 09:53 | Outpatient (BNVA) | payer MEDICAID, SELFPAY | PROVIDERS: PCP Family Medicine; Visit Provider Obstetrics & Gynecology | DX: N87.0 Mild cervical dysplasia (principal) | CPT/HCPCS: 99212 ==

== ENCOUNTER 2021-09-18 06:56 | Day surgery (SDC) | payer MEDICAID, SELFPAY ==
--- NOTE | 2021-09-17 09:08 | P.CONAN_ITS ---
Documented by User: Priscilla Maynard NP 09/17/21 09:10 HPI - Anesthesia Eval Consult details Narrative: 25yo F for LEEP PMFSH Active Problems Active Problems: All Active Problems (Updated 09/14/21 @ 10:33 by Halima Guo, APOLINAR) Well woman exam with routine gynecological exam (Acute) Menometrorrhagia (Acute) Obesity (BMI 30.0-34.9) (Acute) Hx of abnormal cervical Pap smear (Acute) Anemia (Acute) PCOS (polycystic ovarian syndrome) (Acute) LGSIL (low grade squamous intraepithelial dysplasia) (Acute) Encounter for IUD insertion (Acute) AMINAH I (cervical intraepithelial neoplasia I) (Acute) IUD check up (Acute) Past Medical History Medical History Anemia Gestational diabetes HTN (hypertension) Irregular periods Family History Family History Maternal Grandfather HTN (hypertension) Mother HTN (hypertension) Diabetes Father Diabetes HTN (hypertension) Paternal Grandmother Brain cancer HTN (hypertension) Maternal Grandmother HTN (hypertension) Paternal Aunt No problems noted. Paternal Grandmother No problems noted. Paternal Aunt No problems noted. Surgical History Surgical History Hx of section Social History Social History (Updated 09/18/21 @ 08:19 by Trish Concepcion MD) Alcohol intake: never Patient Tobacco Use Status: Never used Tobacco Use of substances other than those prescribed or required for medical reasons: Yes Substance Use Type: Marijuana Last Used Substance: Hours (ago) Are you DNR?: No Advance Directives: No Advance Directives Information Provided: No Gender identity: Female Meds Allergies Allergy/AdvReac Type Severity Reaction Status Date / Time No Known Allergies Allergy Verified 09/14/21 10:33 [No Known Allergies*] Home Medications Medication Instructions Recorded Confirmed Last Taken Type ferrous sulfate 324 mg (65 mg 324 mg PO DAILY 10/28/20 09/14/21 Unknown History iron) tablet,delayed release levonorgestrel 20 mcg/24 hours (7 INTRAUTERINE 08/12/21 Unknown History yrs) 52 mg intrauterine device (Mirena) cetirizine 10 mg tablet 1 tab PO DAILY 09/14/21 09/14/21 Unknown History fluticasone propionate 50 spray INTRANASAL 09/14/21 09/14/21 Unknown History mcg/actuation nasal spray,suspension Exam Exam Date and Time: September 17, [id number] Pertinent Lab Results Pertinent Lab Results: Laboratory Tests 06/11/21 06/11/21 08:51 18:29 WBC 8.2 Hgb 9.2 L D Hct 30.4 L D Plt Count 268 Sodium 138 Potassium 4.3 Chloride 107 Carbon Dioxide 26 BUN 11 Creatinine 0.75 Narrative Narrative: EKG 06/2021 Vent. Rate : 084 BPM ? ? Atrial Rate : 084 BPM ?? P-R Int : 122 ms? QRS Dur : 078 ms ? ? QT Int : 348 ms ? ? ? P-R-T Axes : 038 068 010 degrees ?? QTc Int : 411 ms ? Normal sinus rhythm Nonspecific T wave abnormality Abnormal ECG When compared with ECG of 30-NOV-2014 16:07, Heart rate has decreased Assessment and Plan Assessment Anesthesia Assessment: Chart Reviewed Documented by User: Trish Concepcion MD 09/18/21 08:20 [facility] Active Problems Active Problems: All Active Problems (Updated 09/14/21 @ 10:33 by Halima Guo RN) Well woman exam with routine gynecological exam (Acute) Menometrorrhagia (Acute) Obesity (BMI 30.0-34.9) (Acute) Hx of abnormal cervical Pap smear (Acute) Anemia (Acute). Admitted 06/11/21 with Hct of 19.2 thought to be secondary to menorrhagia. Received 3 units of PRBC. PCOS (polycystic ovarian syndrome) (Acute) LGSIL (low grade squamous intraepithelial dysplasia) (Acute) Encounter for IUD insertion (Acute) AMINAH I (cervical intraepithelial neoplasia I) (Acute) IUD check up (Acute) Past Medical History Medical History Anemia Gestational diabetes HTN (hypertension) Irregular periods Family History Family History Maternal Grandfather HTN (hypertension) Mother HTN (hypertension) Diabetes Father Diabetes HTN (hypertension) Paternal Grandmother Brain cancer HTN (hypertension) Maternal Grandmother HTN (hypertension) Paternal Aunt No problems noted. Paternal Grandmother No problems noted. Paternal Aunt No problems noted. Family history of problems with anesthesia: No Surgical History Surgical History Hx of section History of Problems with Anesthesia: No Social History Social History (Updated 09/18/21 @ 08:19 by Trish Concepcion MD) Alcohol intake: never Patient Tobacco Use Status: Never used Tobacco Use of substances other than those prescribed or required for medical reasons: Yes Substance Use Type: Marijuana Last Used Substance: Hours (ago) Are you DNR?: No Advance Directives: No Advance Directives Information Provided: No Gender identity: Female Meds Allergies Allergy/AdvReac Type Severity Reaction Status Date / Time No Known Allergies Allergy Verified 09/14/21 10:33 [No Known Allergies*] Home Medications Medication Instructions Recorded Confirmed Last Taken Type ferrous sulfate 324 mg (65 mg 324 mg PO DAILY 10/28/20 09/14/21 Unknown History iron) tablet,delayed release levonorgestrel 20 mcg/24 hours (7 INTRAUTERINE 08/12/21 Unknown History yrs) 52 mg intrauterine device (Mirena) cetirizine 10 mg tablet 1 tab PO DAILY 09/14/21 09/14/21 Unknown History fluticasone propionate 50 spray INTRANASAL 09/14/21 09/14/21 Unknown History mcg/actuation nasal spray,suspension Exam Height,Weight and Vital Signs: Height 5 ft 4 in Weight 88.451 kg Vital Signs Temp Pulse Resp BP Pulse Ox 09/18/21 07:25 97.6 F 89 16 125/79 96 Pertinent Lab Results Pertinent Lab Results: Laboratory Tests 06/11/21 06/11/21 08:51 18:29 WBC 8.2 Hgb 9.2 L D Hct 30.4 L D Plt Count 268 Sodium 138 Potassium 4.3 Chloride 107 Carbon Dioxide 26 BUN 11 Creatinine 0.75 Lab Results 09/18/21 09/18/21 Range/Units 07:09 08:10 POC Hgb (Calc) 14.6 (12.0-16.0) g/dL POC Hct 43 (37-47) %PCV POC Std Base Excess 9 H (-3-3) mmol/L POC O2 Sat (Calc) TNP POC ABG Total CO2 34 H (24-29) mmol/L POC Capillary pH 7.43 (7.35-7.45) POC Capillary pCO2 49 H (35-48) mmhg POC Cap HCO3 (Calc) 33 H (22-26) mmol/L POC Sodium 138 (135-145) mmol/L POC Potassium 4.3 (3.3-5.1) mmol/L POC Glucose 110 (60-115) mg/dL Urine Test NEGATIVE (NEGATIVE) Airway Mallampati Class: II TM Dist: >3cm Neck ROM: Full Loose/Missing/Broken Teeth: No Heart: RRR Lungs: CTAB Assessment and Plan Assessment Anesthesia Assessment: Anesthesia Plan Discussed Final Anesthetic Review Family History of Problems with Anesthesia: No History of Problems with Anesthesia: No NPO: Yes ASA Class: II Final Preanesthetic Review: No Changes in Pt Med Stat, Meds/Allgs Chart Reviewed, Consent Obtained/Reviewed and Anes Risks/Benef Reviewed Patient Risk: Low Procedure Risk: Low Assessment/Block/Sedation in SS: Assess/Block/Sedation-SS Anesthetic Plan Anesthetic Plan: GA Disposition: Standard PACU
[2021-09-18 07:14] VITALS: BMI 33.5
[2021-09-18 07:25] VITALS: BP 125/79; PULSE 89; RESP 16; TEMP 36.4; O2SAT 96
[2021-09-18 07:56] LABS: UPreg QC Valid YES; Urine Pregnancy NEGATIVE (NEGATIVE)
[2021-09-18 08:16] LABS: Base Excess Bedside Calculated 9 mmol/L (-3-3); Glucose, i-STAT 110 mg/dL (60-115); HCO3 Bedside Calculated 33 mmol/L (22-26); Hematocrit Bedside 43 %PCV (37-47); Hemoglobin Bedside 14.6 g/dL (12.0-16.0); Potassium Bedside 4.3 mmol/L (3.3-5.1); Sodium Bedside 138 mmol/L (135-145); TCO2 Bedside 34 mmol/L (24-29); pCO2 Bedside 49 mmhg (35-48); pH Bedside 7.43 (7.35-7.45)
--- NOTE | 2021-09-18 08:22 | MHC.SHP ---
Pre-Procedural Eval Section A Date of Service: 09/18/21 The patient is an INPATIENT: No Changes since office visit: No Cold of Flu in the past 2 weeks, No New Medical Problems, No Changes in Medication and No Patient answered all questions The History & Physical has been completed within 30 days and I have reviewed it.: Yes Section B Chief Complaint: marietta 1 Allergies: Allergies Allergy/AdvReac Type Severity Reaction Status Date / Time No Known Allergies Allergy Verified 09/14/21 10:33 [No Known Allergies*] Plan Diagnosis/Plan: Unchanged I have reviewed the history and physical and performed a pertinent physical examination on my patient. No changes have occurred unless specified.
--- NOTE | 2021-09-18 08:53 | P.BOP_ITS ---
Brief Operative Note Date of Service: 09/19/20 Pre-op diagnosis: Persistent AMINAH 1 12 and 01:00 o'clock Procedure: Loop electrical excision procedure Surgeon: Hermes Rizvi MD Anesthesia: MAC Was an Real Estate Services Coordinator used for this Procedure?: No Estimated blood loss (mL): 0 Pathology: none sent (Anterior cervical lip) Condition: stable Disposition: PACU
--- NOTE | 2021-09-18 08:54 | W.PM.OPN ---
Operative Note Operative Note Date of Service: 09/19/20 Narrative: Preop diagnosis: Persistent AMINAH 1 at 12 and 01:00 o'clock Operation: LEEP loop electrical excision procedure Post op diagnosis: same Anesthesia: paracervical block Complications: none Pathology: Anterior cervical lip QBL: minimal Procedure: The patient was put in the dorsal lithotomy position, was prepped and draped in the usual sterile fashion. A sterile speculum was inserted inside the patient vagina. Using Lugol solution the cervix with Dyed with Lugol solution to identifiy the abnormal demarcating line. 10 cc of Marcaine0.5% with epinephrine were given at 2, 4 , 8, and 10 o'clock. Using a medium-size loop wire, the anterior cervical lip was excised. Hemostasis was assured using cautery and Monsel solution. All instruments were taken out of the patient's vaginal cavity. the patient tolerated the procedure well and was discharged home with the following instructions: call if temperature is above 100.4, vaginal bleeding, abdominal pain or nausea or vomiting. Follow-up in the office in 2 weeks for postop visit
[2021-09-18 09:03] VITALS: BP 124/74; PULSE 86; RESP 16; TEMP 36.3; O2SAT 98
[2021-09-18 09:08] VITALS: BP 120/71; PULSE 83; RESP 16; O2SAT 97
[2021-09-18 09:13] VITALS: BP 123/88; PULSE 80; RESP 16; O2SAT 97
[2021-09-18 09:18] VITALS: BP 121/71; PULSE 69; RESP 16; TEMP 36.3; O2SAT 97
[2021-09-18 13:59] LABS: pO2 Bedside < 50 mmhg (83-108)
== END 2021-09-18 09:59 | disposition home or self-care (01) ==
PROVIDERS: Nurse Practitioner; PCP Family Medicine; Visit Provider Obstetrics & Gynecology
PROC: 0UBC7ZZ Excision of Cervix, Via Natural or Artificial Opening (ICD-10-PCS; CPT 57522; principal; 2021-09-18 08:30)
DX: N87.0 Mild cervical dysplasia (principal); N92.6 Irregular menstruation, unspecified; Z98.891 History of uterine scar from previous surgery; D64.9 Anemia, unspecified; I10 Essential (primary) hypertension; F12.90 Cannabis use, unspecified, uncomplicated
CPT/HCPCS: 57522; 81025; 88305; 88307; J2250; J2405; J3010

== ENCOUNTER → 2021-10-01 11:22 | Outpatient (BNVA) | payer MEDICAID, SELFPAY | PROVIDERS: PCP Family Medicine; Visit Provider Obstetrics & Gynecology ==

== ENCOUNTER 2023-06-29 19:16 | Outpatient (REF) | payer OTHER, SELFPAY ==
[2023-07-01 19:33] LABS: C. trachomatis RNA TMA NOT DETECTED (NOT DETECTED); N. gonorrhoeae RNA TMA NOT DETECTED (NOT DETECTED)
[2023-07-01 22:43] LABS: HPV mRNA E6/E7 rflx Not Detected (Not Detected)
== END 2023-06-29 19:17 | disposition home or self-care (01) ==
LOC: HO.HHCL 19:16
PROVIDERS: Visit Provider Family Medicine
DX: Z12.72 Encounter for screening for malignant neoplasm of vagina (principal); Z11.51 Encounter for screening for human papillomavirus (HPV)
CPT/HCPCS: 36415; 87491; 87591; 87624; 88142

== ENCOUNTER 2023-07-20 11:50 | Outpatient (REF) | payer OTHER, SELFPAY ==
[2023-07-20 13:14] LABS: MANUAL DIFF FLAG NO
[2023-07-20 13:30] LABS: Basophils Percent Auto 0.1 % (0-2); Eosinophils Percent Auto 0.3 % (0-4); Hematocrit 46.4 % (37.0-47.0); Hemoglobin 15.9 g/dl (12.0-16.0); Imm Gran Abs Auto 0.02 X10*3/uL (0.00-0.03); Imm Gran Pct Auto 0.2 % (0.0-0.4); Lymphocytes Percent Auto 22.7 % (20-40); Mean Corpuscular HGB Conc 34.3 g/dl (31.0-35.0); Mean Corpuscular Hemoglobin 32.3 pg (27.0-33.0); Mean Corpuscular Volume 94.3 fL (80.0-98.0); Mean Platelet Volume 10.5 fL (9.4-12.3); Monocytes Absolute Auto 0.4 X10*3/uL (0.1-1.2); Neutrophils Absolute Auto 6.2 x10*3/uL (2.0-8.3); Neutrophils Percent Auto 71.7 % (45-73); Platelet Count 256 X10*3/uL (160-400); Red Blood Count 4.92 X10*6/uL (4.20-5.50); Red Cell Distribution Width 11.7 % (11.0-16.0); White Blood Count 8.7 X10*3/uL (4.8-10.8)
[2023-07-20 13:49] LABS: Alanine Aminotransferase 35 U/L (0-31); Albumin Level 4.4 g/dL (3.5-5.0); Alkaline Phosphatase 64 U/L (39-117); Anion Gap 14 (12-20); Aspartate Amino Transferase 20 U/L (5-31); Bilirubin Direct 0.1 mg/dL (0.0-0.5); Bilirubin Total 0.4 mg/dL (0.0-1.0); Blood Urea Nitrogen 7 mg/dL (9-16); Calcium 9.8 mg/dL (8.4-10.2); Carbon Dioxide 26 mmol/L (22-29); Chloride 101 mmol/L (96-108); Cholesterol 240 mg/dL (<200); Estimated Average Glucose 105 mg/dL; Estimated Glomerular Filt Rate > 60; Glucose Random 95 mg/dL (60-115); HDL Cholesterol 50 mg/dL (>40); Hemoglobin A1c % 5.3 % (<6.0); Iron 73 mcg/dL (30-160); LDL Cholesterol Calculated 160 mg/dL (<100); Percent Iron Saturation 23 % (15-50); Potassium 3.9 mmol/L (3.3-5.1); Sodium 137 mmol/L (135-145); Total Iron Binding Capacity 324 mcg/dL (228-428); Total Protein 7.8 g/dL (6.5-8.0); Triglycerides 153 mg/dL (<150); Unsaturated Iron Binding 251 ug/dL
[2023-07-20 14:07] LABS: Ferritin 45 ng/mL (10-122); TSH reflex Free T4 1.81 uIU/mL (0.32-4.0)
[2023-07-20 14:10] LABS: Vitamin B12 566 pg/mL (200-900)
[2023-07-21 04:25] LABS: HIV AB/AG Nonreactive (Nonreactive); HIV Num 1 0.05 S/CO (0.00-0.99); ~HepC Num1 0.07 S/CO (0.00-0.79); ~Hepatitis C Antibody Nonreactive (Nonreactive)
[2023-07-24 14:18] LABS: VITAMIN D (1,25 OH) D3 58 pg/mL; Vit D (1,25-Dihydroxy) Total 58 pg/mL (18-72); Vitamin D (1,25 OH) D2 <8 pg/mL
[2023-08-09 09:09] LABS: Testosterone, Total 72 ng/dL (2-45)
== END 2023-07-20 11:51 | disposition home or self-care (01) ==
LOC: HO.HHCL 11:50
PROVIDERS: Visit Provider Family Medicine
DX: E28.2 Polycystic ovarian syndrome (principal); D64.9 Anemia, unspecified; Z11.3 Encounter for screening for infections with a predominantly sexual mode of transmission; Z13.21 Encounter for screening for nutritional disorder; Z13.1 Encounter for screening for diabetes mellitus; Z86.32 Personal history of gestational diabetes; Z13.220 Encounter for screening for lipoid disorders
CPT/HCPCS: 36415; 80048; 80061; 80076; 82607; 82652; 82728; 83036; 83540; 84402; 84403; 84443; 85025; 86803; 87389

== ENCOUNTER 2024-05-08 14:30 | Outpatient (REF) | payer OTHER, SELFPAY ==
[2024-05-08 16:27] LABS: Bacterial Vaginosis PCR NEGATIVE (Negative); Candida Group PCR NOT DETECTED (Not Detect); Candida glab krusei PCR NOT DETECTED (Not Detect); Trichomonas vaginalis PCR NOT DETECTED (Not Detect)
[2024-05-08 17:07] LABS: CT PCR NOT DETECTED (Not Detect.); NG PCR NOT DETECTED (Not Detect.)
== END 2024-05-08 14:31 | disposition home or self-care (01) ==
LOC: HO.HHCLNP 14:30
PROVIDERS: Visit Provider Advanced Practice Midwife
DX: Z11.3 Encounter for screening for infections with a predominantly sexual mode of transmission (principal)
CPT/HCPCS: 0352U; 87491; 87591

== ENCOUNTER 2024-05-08 15:58 | Outpatient (REF) | payer OTHER, SELFPAY ==
--- NOTE | ~2024-05-08 | US_ITS ---
EXAMINATION: US PELVIS CLINICAL INFORMATION: Pelvic pain. Has IUD. test negative. COMPARISON: None available. TECHNIQUE: Ultrasound of the pelvis is performed using both transabdominal and transvaginal transducers along with Doppler. Transvaginal imaging is performed due to inadequate visualization transabdominally. FINDINGS: Uterus: The uterus is anteverted, anteflexed and measures 9.5 x 4.0 x 5.2 cm. There is an intrauterine contraceptive device in good position. Hence endometrial thickness cannot be evaluated. The uterus is smooth in contour and has normal myometrial echogenicity. No visible fibroid. There are small nabothian cysts seen in the cervix. Adnexa: Both ovaries are visualized. There is normal color flow to the adnexa. There is no ovarian torsion. There is no pelvic ascites or fluid collection. Right ovary measures 3.7 x 2.2 x 2 3.5 cm. Volume 14.9 mL. There are multiple small follicles visualized. Left ovary measures 4.9 x 2.7 x 2.4 cm. Volume 6.6 mL there are multiple follicles seen in left ovary. No free fluid seen cul-de-sac US/US pelvic and transvaginal IMPRESSION: 1. Unremarkable uterus. Small nabothian cysts in the cervix. 2. Intrauterine contraceptive device in good position. 3. Multiple bilateral ovarian small follicles noted.. 4. There is no free fluid in the cul-de-sac.
== END 2024-05-08 15:59 | disposition home or self-care (01) ==
LOC: HO.US 15:58
PROVIDERS: Visit Provider Advanced Practice Midwife
DX: R10.2 Pelvic and perineal pain (principal)
CPT/HCPCS: 76830; 76856

== ENCOUNTER → 2024-06-06 14:18 | Outpatient (RCR) | payer MEDICAID, SELFPAY ==
[2020-10-28 09:27] VITALS: BP 139/80; PULSE 95; RESP 18; TEMP 36.3; O2SAT 100; BMI 35.4
--- NOTE | 2020-10-28 09:37 | P.CNHO_ITS ---
Subjective - Subjective Chief complaint: Consult for anemia. Patient: new to practice Consult date: 10/28/20 Requesting Physician: Pat Rivers. Primary Care Provider: Minerva Mancuso MD Medical Summary: DIAGNOSIS: ANEMIA. HPI - Consult Narrative Narrative: Henna Leal is a pleasant 25 year old lady who tells me that she has had heavy period off and on since the of her child in 2013. Her most recent period started August 21 and continued up until October 10. She is currently undergoing a powder blender and pourer workup by Dr. Rizvi. She had previously had a colposcopy in 2018. She has history of HPV. She delivered her 2nd baby 2 years ago. She is now being worked up for polycystic ovarian syndrome. She is actually scheduled for a transvaginal ultrasound today. Her CBC from 09/30 revealed: WBC 8, HGB 7.7, HCT 25.2, MCV 90.6, PLT 366. She has been rather tired, as of late. She sleeps late around 03:00 but then she sleeps in. Her appetite is not good. She has gained weight. She gets the headaches. Denies any GI complaints. She complains of back pain from scoliosis. She does feel rather depressed at times. 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 Currently unemployed. She is on . She has a boyfriend. She has 2 children. She denies smoking cigarettes but smokes marijuana. She rarely drinks. Family history: Positive for breast cancer in the family. Grandma of brain cancer. Uncle has lung cancer. Review of Systems - Constitutional Reports system reviewed and no additional complaints, except as documented, Reports lack of energy, Reports malaise - Eyes Reports system reviewed and no additional complaints, except as documented - ENT Reports system reviewed and no additional complaints, except as documented - Cardiovascular Reports system reviewed and no additional complaints, except as documented - Respiratory Reports no additional respiratory complaints - Gastrointestinal Reports system reviewed and no additional complaints, except as documented - Genitourinary Reports no additional female genitourinary complaints, Reports abnormal vaginal bleeding, Reports bleeding between periods, Reports heavy periods - Musculoskeletal Reports system reviewed and no additional complaints, except as documented, Reports back pain - Integumentary/Breasts Skin/Breast: Reports no additional skin complaints - Neurologic Reports system reviewed and no additional complaints, except as documented - Psychiatric Reports system reviewed and no additional complaints, except as documented - Endocrine Reports no additional endocrine complaints - Hematologic/Lymphatic Reports system reviewed and no additional complaints, except as documented - Allergic/Immunologic Reports system reviewed and no additional complaints, except as documented PMFSH Medical History: Medical History (Last Updated 10/28/20 @ 09:30 by Lianet Caraballo RN) Gestational diabetes HTN (hypertension) Irregular periods Functional capacity: independent ambulation Patient : No Family History: Family History (Last Updated 10/28/20 @ 09:32 by Lianet Caraballo RN) Maternal Grandfather HTN (hypertension) Mother HTN (hypertension) Diabetes Father Diabetes HTN (hypertension) Paternal Grandmother Brain cancer HTN (hypertension) Maternal Grandmother HTN (hypertension) Paternal Aunt No problems noted. Paternal Grandmother No problems noted. Paternal Aunt No problems noted. Surgical History: Surgical History (Last Updated 09/30/20 @ 14:44 by Jojo Thomson CMA) Hx of section Smoking status: Never smoker Home Medications and Allergies Home Medications Medication Instructions Recorded Confirmed Type ferrous sulfate 324 mg PO DAILY 10/28/20 10/28/20 History Allergies Allergy/AdvReac Type Severity Reaction Status Date / Time No Known Allergies Allergy Verified 09/30/20 14:37 [No Known Allergies*] Physical Exam Vital signs: Vital Signs Temp 97.3 F 10/28/20 09:27 Pulse 95 10/28/20 09:27 Resp 18 10/28/20 09:27 BP 139/80 10/28/20 09:27 Pulse Ox 100 10/28/20 09:27 Intake & Output 10/27/20 10/28/20 10/28/20 18:59 06:59 18:59 Other: Weight 93.6 kg Weight 93.6 kg - Constitutional Present: no acute distress - Routine HEENT Exam Head: Present: normal inspection - Routine Neck Exam Present: supple - Routine Respiratory Exam Present: CTAB - Routine Cardiovascular Exam Cardiovascular: Present: RRR, S1, S2 - Routine Abdominal Exam Present: nontender - Routine Rectal Exam Patient deferred: digital exam - Routine Extremities Exam Present: nontender - Routine Skin Exam Present: intact - Routine Neurological Exam Present: alert - Detailed Neurological Exam: Coma Scale Eye Opening: Spontaneous (4) Verbal Response: Oriented (5) Motor Response: Obeys commands (6) [place] Coma Scale Total: 15 - Routine Psychiatric Exam Present: normal affect Hem/Onc Consult Result - Labs CBC & Chem 7: 10/28/20 09:55 10/28/20 09:55 Assessment and Plan (1) Anemia Status: Acute This is a pleasant 25-year-old lady with a history of anemia. Anemia is normochromic normocytic. My concern is iron deficiency anemia, related to blood loss. 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 Differential diagnosis also includes: Iron malabsorption from something like celiac disease. Anemia of chronic disease: Less likely. PLAN: I will proceed with further evaluation. Will check CBC and iron studies. Hemoglobin 8.1. Iron studies: 15/436/3/<1. Check celiac disease profile. (transfer glute IgA: 1.) She has been on oral iron once a day. That is all she can tolerate. Since the hemoglobin is still low, I will proceed with IV iron. She is being followed by powder blender and pourer. She is actually being worked up for POS. She will return in 3 months for a follow-up visit. Thank you, CC: Dr. Mancuso. Pat Rivers.
[2020-10-28 09:56] LABS: MANUAL DIFF FLAG NO
[2020-10-28 10:03] LABS: Basophils Percent Auto 0.3 % (0-2); Eosinophils Percent Auto 0.5 % (0-4); Hematocrit 27.5 % (37-47); Hemoglobin 8.1 g/dl (12.0-16.0); Imm Gran Abs Auto 0.02 X10*3/uL (0.00-0.03); Imm Gran Pct Auto 0.3 % (0.0-0.4); Lymphocytes Absolute Auto 1.5 X10*3/uL (1.2-4.9); Lymphocytes Percent Auto 22.2 % (20-40); Mean Corpuscular HGB Conc 29.5 g/dl (31.0-35.0); Mean Corpuscular Hemoglobin 24.2 pg (27.0-33.0); Mean Corpuscular Volume 82.1 fL (80-98); Mean Platelet Volume 9.7 fL (9.4-12.3); Monocytes Absolute Auto 0.5 X10*3/uL (0.1-1.2); Monocytes Percent Auto 7.3 % (2-11); Neutrophils Absolute Auto 4.6 X10*3/uL (2.0-8.3); Neutrophils Percent Auto 69.4 % (45-73); Platelet Count 376 X10*3/uL (160-400); Red Blood Count 3.35 X10*6/uL (4.20-5.50); Red Cell Distribution Width 15.3 % (11.0-16.0); White Blood Count 6.6 X10*3/uL (4.8-10.8)
--- NOTE | 2020-10-28 10:26 | MHC.HEMONC ---
Patient here for consult. Labs drawn. Clinical summary updated with nurse. Provider seen patient. Follow-up booked. IV ferrlecit order given to MA to book.
[2020-10-28 10:37] LABS: Alanine Aminotransferase 30 U/L (0-31); Albumin Level 4.1 g/dL (3.5-5.0); Alkaline Phosphatase 61 U/L (39-117); Anion Gap 12 (12-20); Aspartate Amino Transferase 19 U/L (5-31); Bilirubin Total 0.2 mg/dL (0.0-1.0); Blood Urea Nitrogen 16 mg/dL (9-16); Calcium 9.1 mg/dL (8.4-10.2); Carbon Dioxide 27 mmol/L (22-29); Chloride 104 mmol/L (96-108); Creatinine Clr Calc Pharmacy 125.5; Estimated Glomerular Filt Rate > 60; Glucose Random 102 mg/dL (60-115); Iron 15 mcg/dL (30-160); Percent Iron Saturation 3 % (15-50); Potassium 4.3 mmol/l (3.3-5.1); Sodium 139 mmol/L (135-145); Total Iron Binding Capacity 436 mcg/dL (228-428); Total Protein 6.9 g/dL (6.5-8.0); Unsaturated Iron Binding 421 ug/dL
[2020-10-28 11:30] LABS: Ferritin < 1 ng/mL (10-122)
--- NOTE | 2020-10-28 14:02 | MHC.HEMONCMA ---
Patient is scheduled for ferrilicit infusion on 11/04/2020 at 12p. [place] aware patient chose date and time.
[2020-10-30 03:57] LABS: Transglutaminase IgA 1 U/mL
== END | disposition home or self-care (01) ==
LOC: HO.ONC 10-28 09:14
PROVIDERS: PCP Family Medicine; Referring Provider Advanced Practice Midwife; Visit Provider Internal Medicine Medical Oncology
DX: D64.9 Anemia, unspecified (principal); N92.1 Excessive and frequent menstruation with irregular cycle; Z79.899 Other long term (current) drug therapy
CPT/HCPCS: 36415; 80053; 82728; 83516; 83540; 85025; 99204

== ENCOUNTER 2025-06-03 11:06 | Outpatient (REF) | payer OTHER, SELFPAY ==
--- OUTSIDE RECORDS SUMMARY | 2025-06-03 12:29 | XMS_ITS | Encounter Summary ---
Author Organization [employer] Address [address] [place] [address] Care Team Providers Care Bore Miner Operator Name Role Phone Minerva Mancuso MD Primary Care Provider [phone] Hermes Rizvi MD Unavailable Encounter Details Date Type Department Care Team ([facility] st Contact Info) Description 05/30/2025 Telephone [facility] [address], [place] [phone] Minerva Mancuso MD [address] [place], [place] [phone] Social History Tobacco Use Types Packs/Day Years Used Date Smoking Tobacco: Former Smokeless Tobacco: Never Alcohol Use Standard Drinks/Week Comments Never 0 (1 standard drink = 0.6 oz pur e alcohol) Depression Answer Date Recorded Patient Health Questionnaire-9 Score 0 06/29/2023 Housing Stability Answer Date Recorded What is your housing situation today? I have kiki woodard 04/25/[address] you li ve. Do you have problems with any of the following? None of the above 04/25/2025 Food Insecurity Answer Date Recorded Within the past 12 months, y ou worried that your food would run out before you got money to buy more: Never True 04/25/2025 Within the past 12 months,th e food you bought just didn't last and you didn't have enough money to get more: Never True Transportation Answer Date Recorded In the past 12 months, has l ack of transportation kept you from medical appts, meetings, work or from getting things needed for daily living? No 04/25/2025 Utilities Answer Date Recorded In the past 12 months, has t he electric, gas, oil or water company threatened to shut off services in your home? No 04/25/2025 Depression Answer Date Recorded Patient Health Questionnaire-2 Score 0 06/29/2023 Internet Access Answer Date Recorded Internet Access Q1 Yes 04/25/2025 Internet Access Q2 Not on file 04/25/2025 Comments No Sex and Gender Information Value Date Recorded Sex Assigned at Female 08/09/2022 10:26 AM EDT Legal Sex Female 10:26 AM EDT Gender Identity Female 08/09/2022 10:26 AM EDT Sexual Orientation Straight 08/09/2022 10 :26 AM EDT documented as of this encounter Miscellaneous Notes * Telephone Encounter - Leyla Rodriguez MA - 05/30/2025 2:21 PM EDT I spoke with with a patient and I let her know that she needs to do blood work before the appointment. [place] [facility] [place] she go to the hospital to do blood work if not pt is going to wait to Tuesday to do blood work. documented in this encounter Plan of Treatment Not on file documented as of this encounter Visit Diagnoses Not on filedocumented in this encounter Additional Health Concerns Assessment Noted Time PHQ-9 Depression Total Score: 0 06/29/20 23 10:27 AM EDT documented as of this encounter Care Teams Bore Miner Operator Relationship Specialty Start Date End Date Minerva Mancuso MD [address] [place] [id number] PCP - General Family Medicine 04/26/22 Hermes Rizvi MD [address] [place] [id number] Obstetrics and Gynecology 11/06/24 documented as of this encounter
[2025-06-03 13:38] LABS: MANUAL DIFF FLAG NO
[2025-06-03 13:57] LABS: Hematocrit 44.2 % (37.0-47.0); Hemoglobin 14.7 g/dl (12.0-16.0); Imm Gran Abs Auto 0.02 X10*3/uL (0.00-0.03); Imm Gran Pct Auto 0.2 % (0.0-0.4); Lymphocytes Absolute Auto 1.8 X10*3/uL (1.2-4.9); Mean Corpuscular HGB Conc 33.3 g/dl (31.0-35.0); Mean Corpuscular Hemoglobin 32.3 pg (27.0-33.0); Mean Corpuscular Volume 97.1 fL (80.0-98.0); NRBC Abs Auto 0.000 X10*3/uL (0.0-0.012); NRBC Pct Auto 0.0 /100WBC (0.0-0.2); Platelet Count 301 X10*3/uL (160-400); Red Blood Count 4.55 X10*6/uL (4.20-5.50); White Blood Count 8.4 X10*3/uL (4.8-10.8)
[2025-06-03 14:10] LABS: Hemoglobin A1C 140.9450 umol/L; Total Hemoglobin (HGBA1C) 3873.9883 umol/L
[2025-06-03 14:38] LABS: Alanine Aminotransferase 41 U/L (0-31); Albumin Level 4.4 g/dL (3.5-5.0); Alkaline Phosphatase 67 U/L (39-117); Anion Gap 13 (12-20); Aspartate Amino Transferase 27 U/L (5-31); Blood Urea Nitrogen 12 mg/dL (9-16); Calcium 9.2 mg/dL (8.4-10.2); Carbon Dioxide 27 mmol/L (22-29); Chloride 102 mmol/L (96-108); Cholesterol 227 mg/dL (<200); Estimated Glomerular Filt Rate > 60; Ferritin 96 ng/mL (10-122); HDL Cholesterol 45 mg/dL (>40); Iron 78 mcg/dL (30-160); Percent Iron Saturation 27 % (15-50); Potassium 3.7 mmol/L (3.3-5.1); Sodium 138 mmol/L (135-145); Total Iron Binding Capacity 289 mcg/dL (228-428); Total Protein 7.3 g/dL (6.5-8.0); Triglycerides 118 mg/dL (<150); Unsaturated Iron Binding 211 ug/dL
[2025-06-03 14:41] LABS: Folate 6.8 ng/mL (> or = 4.0); Vitamin B12 401 pg/mL (200-900)
== END 2025-06-03 11:07 | disposition home or self-care (01) ==
LOC: HO.HHCL 11:06
PROVIDERS: PCP Family Medicine; Visit Provider Family Medicine
DX: N93.9 Abnormal uterine and vaginal bleeding, unspecified (principal); E28.2 Polycystic ovarian syndrome; E78.5 Hyperlipidemia, unspecified; E55.9 Vitamin D deficiency, unspecified
CPT/HCPCS: 36415; 80048; 80061; 80076; 82306; 82607; 82728; 82746; 83036; 83540; 84443; 85025

== ENCOUNTER 2025-07-08 08:24 | Outpatient (AMB) | payer OTHER, SELFPAY ==
[2025-07-08 08:26] VITALS: BP 116/78; PULSE 80; O2SAT 98; BMI 35.1
--- NOTE | 2025-07-08 08:26 | MHC.OFFVIS ---
Vital Signs 07/08/25 08:26 Height 5 ft 4 in Weight 204 lb 6 oz BMI 35.1 BP 116/78 Blood Pressure Location Rt brachial Position Sitting Pulse 80 Pulse Source Pulse Oximeter Pulse Oximetry (%) 98 Oxygen Delivery Method Room Air Intake Visit Reasons: ENP-Daytime Somnolence Intake Note: Patient presents [employer] Daytime Somnolence. Patient states hard time staying asleep wakes up around 1-2 times night. Witnessed loud snoring. Not sure about apnea,gasping. Goes to bed around 10-11pm wake sup around 6:45am. Patient states headache all the time. No history of sleep studies. Accompanied by: Self / Same As Patient Allergies No Known Allergies (No Known Allergies*) Allergy (Verified 07/08/25 08:33) HPI Comments Details: 29 year old female referred to us for a sleep apnea evaluation by her PCP, Minerva Mancuso in [facility]. She has multiple arousals at night, snores loudly and gasps for air per her partner. She has morning headaches which can last all day and she takes tylenol otc which improves the symptoms. She gets migraines once every couple of months. She has bruxism and clenches her jaw at night. She has postnasal drip, allergies and h/o of surgical adenoidectomy. She is a smoker 2-3x a day of MJ. She has bilateral eye fatigue, as she is working at a [employer] and on the computer 8 hour a day. She denies RLS symptoms, however has paresthesias bilaterally in hands and notices she still drops things and has weakness. Her memory and mood is stable. Diet is improving, she is trying to reduce daily intake of sugars. [facility] Medical History Anemia Gestational diabetes Irregular periods HTN (hypertension) Surgical History Hx of section Family History Maternal Grandfather HTN (hypertension) Mother HTN (hypertension) Diabetes Father Diabetes HTN (hypertension) Paternal Grandmother Brain cancer HTN (hypertension) Maternal Grandmother HTN (hypertension) Paternal Aunt No problems noted. Paternal Grandmother No problems noted. Paternal Aunt No problems noted. Social History Alcohol intake: never Patient Tobacco Use Status: Never used Tobacco Substance Use Type: Marijuana Gender identity: Female Female Reproductive History Menstrual Age of Menarche: 12 Physical Exam Vital Signs: Last Vital Signs Pulse 80 07/08/25 08:26 BP 116/78 07/08/25 08:26 Pulse Ox 98 07/08/25 08:26 Oxygen Delivery Method Room Air 07/08/25 08:26 BMI result Body Mass Index 35.1 Const General: cooperative, comfortable and no acute distress Nutritional Appearance: average body habitus Orientation/consciousness: patient oriented x3 HEENT Face and sinus: Yes face symmetric Teeth and gingiva: other ([place] score is 4) Eyes Pupils: Equal, round and reactive pupils present Neck Neck: Yes full ROM Resp Effort & Inspection: normal respiratory effort and able to speak in complete sentences Neuro General: patient oriented x3 and moves all extremities Cranial nerves: Yes Equal, round and reactive pupils present, Yes Normal accommodation reflex present, Yes Normal facial strength present, Yes Ability to bilaterally rotate head present and Yes Ability to bilaterally elevate shoulders present Cognition (Neuro): normal cognition Gait exam (Neuro): Normal gait present Motor exam (neuro): 5/5 motor strength present throughout, Normal motor muscle tone present throughout and Abnormal motor strength present Psych Appearance: grossly normal Affect: normal affect Attitude: cooperative Thought process: Normal thought process present Results Reviewed Results Reviewed: Labs Assessment & Plan Assessment & Plan (1) Excessive daytime sleepiness: Code(s): G47.19 - Other hypersomnia Category: Medical Plan HST to r/o THONG Labs to r/o deficiencies Orders: Orders Methylmalonic Acid Today G47.19 - Other hypersomnia, G47.9 - Sleep disorder, unspecified, R53.83 - Other fatigue Homocysteine Today G47.19 - Other hypersomnia, G47.9 - Sleep disorder, unspecified, R53.83 - Other fatigue Vitamin B6 Today G47.19 - Other hypersomnia Ferritin Today G47.19 - Other hypersomnia Patient Instructions: Sleep Hygiene provided: set a scheduled bedtime and wake time to help regulate the circadian rhythm and balance the release of pituitary hormones. Sleep in a dark room, temperatures below 68 degrees, and no devices n bed. Limit caffeinated products 6 hours prior to bed, and limit fluids 2-4 hours prior to bed. Gentle night yoga, diffusing essential oils, and playing soft music can be relaxing. Coding Level of Care Code New Pt Level 4 (50379) Diagnoses Excessive daytime sleepiness G47.19 Sleep Questionnaire Difficulty falling asleep: No Difficulty staying asleep?: Yes Number of arousals: 2-3 Snoring: Yes Witnessed apneas: Yes Gasping arousals: Yes Nocturia: No GERD: Yes Vivid dreams: Yes Acting out dreams: No Abnormal behavior in sleep: Yes (sleep walking) Abnormal movements in sleep: Yes (walks and talks) Morning headaches: Yes Excessive daytime sleepiness: Yes Daytime naps: Yes Restless legs: No Hallucinations: No Sleep paralysis: No Drop attacks: No Sleep Study: No CPAP: No
--- OUTSIDE RECORDS SUMMARY | 2025-07-08 08:44 | XMS_ITS | Clinical Summary ---
Author Organization [employer] Address [address] [facility] [address] [place] [address] Care Team Providers Care Mechanical Assembly Name Role Phone Minerva Mancuso MD Primary Care Provider [phone] Hermes Rizvi MD Unavailable Allergies No known active allergies Medications SUMAtriptan (Imitrex) 50 MG tabletIndicatio ns:Migraine with aura and without status migrainosus, not intractable Take 1 tablet (50 mg) by mouth 1 (one) time if needed for migraine for up to 1 dose. May repeat dose once in 2 hours if no relief. Do not exceed 2 doses in 24 hours. 9 tablet 2 06/03/20 25 Active omeprazole OTC (PriLOSEC OTC) 20 MG EC tabletIndicatio ns:Gastroesopha geal reflux disease, unspecified whether esophagitis present Take 1 tab po BID for 14 days. 28 tablet 06/03/20 25 Active etonogestrel-et hinyl estradiol (Nuvaring) 0.12-0.015 MG/24HR vaginal ringIndications :Family planning Insert 1 Ring. into the vagina See administration instructions. 1 every 3 weeks as directed then remove for 1 week 3 Ring. 3 06/03/20 25 026 Active sertraline (Zoloft) 25 MG tabletIndicatio ns:Anxiety Take 1 tablet (25 mg) by mouth Once per day. 30 tablet 11 06/03/20 25 026 Active metFORMIN XR (Glucophage-XR) 500 MG 24 hr tabletIndicatio ns:PCOS (polycystic ovarian syndrome) Take 1 tablet (500 mg) by mouth with evening meal. Do not crush, chew, or split. 30 tablet 11 06/12/20 Active albuterol 108 (90 Base) MCG/ACT inhalerIndicati ons:Wheeze Inhale 2 puffs every 4 (four) hours if needed for wheezing. 18 g 06/12/20 026 Active Active Problems Problem Noted Date Diagnosed Date History of anemia 08/29/2023 Overview (06/12/2025): Hx of iron def anemia with hemvy menses. -s/p iron transfusions, -AUB improved with Mirena - Lab Results Component Value Date FERRITIN 96 06/03/2025 FERRITIN 45 07/20/2023 HGB 14.7 06/03/2025 HGB 15.9 07/20/2023 HGB 4.9 (L) 06/10/2021 HEMATOCRIT 18.8 (L) 06/10/2021 Assessment & Plan (08/29/2023 8:58 AM EST): Hx of iron def anemia with hemvy menses. -s/p iron transfusions, -AUB improved with Mirena - Lab Results Component Value Date FERRITIN 45 07/20/2023 HGB 15.9 07/20/2023 HGB 4.9 (L) 06/10/2021 HEMATOCRIT 18.8 (L) 06/10/2021 Dyslipidemia 08/29/2023 Overview (06/12/2025): Lab Results Component Value Date TRIG 118 06/03/2025 CHOL 227 (H) 06/03/2025 LDLCHOLCAL 159 (H) 06/03/2025 HDL 45 06/03/2025 -continue lifestyle modifications Assessment & Plan (06/12/2025 6:01 PM EDT): Lab Results Component Value Date TRIG 118 06/03/2025 CHOL 227 (H) 06/03/2025 LDLCHOLCAL 159 (H) 06/03/2025 HDL 45 06/03/2025 -continue lifestyle modifications Assessment & Plan (08/29/2023 9:08 AM EST): Lab Results Component Value Date TRIG 153 (H) 07/20/2023 CHOL 240 (H) 07/20/2023 LDLCHOLCAL 160 (H) 07/20/2023 HDL 50 07/20/2023 -continue lifestyle modifications Obesity (BMI 30-39.9) 08/29/2023 Overview (08/29/2023): -pt desires referral to nutrition, placed Assessment & Plan (08/29/2023 9:18 AM EST): -pt desires referral to nutrition, placed Depression 06/29/2023 PCOS (polycystic ovarian syndrome) 06/29/2023 Overview (06/12/2025): Likely due to PCOS, previously followed by Pat Prasad CNM -negative endometrial for malignancy or hyperplasia biopsy with Dr. Rizvi 2020 -US 2020 showed multiple follicular cysts consistent with PCOS -Mirena IUD placed [address] Rizvi -Testosterone 07/20/2023 elevated at 72 -IUD removed 06/03/25 -Start Nuvaring 06/03/25 -Start Metformin 500 MG 06/12/25 Assessment & Plan (06/12/2025 6:01 PM EDT): Likely due to PCOS, previously followed by Pat Prasad CNM -negative endometrial for malignancy or hyperplasia biopsy with Dr. Rizvi 2020 -US 2020 showed multiple follicular cysts consistent with PCOS -Mirena IUD placed [address] Rizvi -Testosterone 07/20/2023 elevated at 72 -IUD removed 06/03/25 -Start Nuvaring 06/03/25 -Start Metformin 500 MG 06/12/25 Orders: metFORMIN XR (Glucophage-XR) 500 MG 24 hr tablet; Take 1 tablet (500 mg) by mouth with evening meal. Do not crush, chew, or split. Assessment & Plan (08/29/2023 9:16 AM EST): Likely due to PCOS, previously followed by Pat O'Jian CNM -negative endometrial for malignancy or hyperplasia biopsy with Dr. Rizvi 2020 -US 2020 showed multiple follicular cysts consistent with PCOS -Mirena IUD placed [address] Rizvi -Testosterone 07/20/2023 elevated at 72 Family planning 06/29/2023 Overview (06/12/2025): [id number] Mirena placed circ2020 with Dr. Rizvi IUD removed 06/03/25 Start Nuvaring 06/03/25 Wants to get , has heavy bleeding during menstrual cycles d/t PCOS, denies control. Recommended follow-up with CAT DOG OR OTHER PET GROOMER for further options 06/12/25 Assessment & Plan (06/12/2025 6:01 PM EDT): [id number] Mirena placed circ2020 [address] Dr[address] Rizvi IUD removed 06/03/25 Start Nuvaring 06/03/25 Wants to get , has heavy bleeding during menstrual cycles d/t PCOS, denies control. Recommended follow-up with CAT DOG OR OTHER PET GROOMER for further options 06/12/25 Assessment & Plan (08/29/2023 8:57 AM EST): [id number] Mirena placed circ[address] Rizvi Assessment & Plan (06/29/2023 11:10 AM EDT): . Mirena control. Hx of abnormal PAP 10/01/2020. Other specified health status 06/27/2023 Overview (06/03/2025): -next comprehensive annual evaluation due after 06/03/26 -eye care facilitated by [facility]. -dental home is Dr Parikh -cirilo care proxy Assessment & Plan (06/29/2023 11:13 AM EDT): -next physical exam due after 06/29/2024. -eye care facilitated by [facility] -dental home is Dr. Parikh Dysplasia of cervix, low grade (AMINAH 1) Overview (08/29/2023): -Hx LSIL, HPV positive Pap 10/01/2020 -Hx AMINAH 1 on colpo 06/16/[address] Hermes URIAS 09/18/2021 no atypia, cotesting recommended for 12 months -cotesting done 06/29/23 NILM, HPV negative Assessment & Plan (08/29/2023 8:47 AM EST): -Hx LSIL, HPV positive Pap 10/01/2020 -Hx AMINAH 1 on colpo 06/16/[address] Hermes URIAS 09/18/2021 no atypia, cotesting recommended for 12 months -cotesting done 06/29/23 NILM, HPV negative Assessment & Plan (06/29/2023 10:38 AM EDT): -Hx LSIL, HPV positive Pap 10/01/2020 -Hx AMINAH 1 on colpo 06/16/[address] Hermes URIAS 09/18/2021 no atypia, cotesting recommended for 12 months Assessment & Plan (10/24/2022 10:26 AM EST): -Hx AMINAH 1 on colpo 06/16/[address] Hermes URIAS 09/18/2021 no atypia History of gestational diabetes 02/09/2022 Abnormal uterine bleeding 06/10/2021 Overview (06/12/2025): Likely due to PCOS, previously followed by Pat Prasad CNM -negative endometrial for malignancy or hyperplasia biopsy with Dr. Rizvi 2020 -US 2020 showed multiple follicular cysts consistent with PCOS -Mirena IUD placed [address] Rizvi -Testosterone 07/20/2023 elevated at 72 -IUD removed 06/03/25 -Start Nuvaring 06/03/25 -Reports heavy bleeding during menstrual cycles d/t PCOS, denies control, wants to get . Recommended follow-up with CAT DOG OR OTHER PET GROOMER for further options 06/12/25 -Start Metformin 500 MG 06/12/25 Assessment & Plan (06/12/2025 6:01 PM EDT): Likely due to PCOS, previously followed by Pat Prasad CNM -negative endometrial for malignancy or hyperplasia biopsy with Dr. Rizvi 2020 -US 2020 showed multiple follicular cysts consistent with PCOS -Mirena IUD placed [address] Rizvi -Testosterone 07/20/2023 elevated at 72 -IUD removed 06/03/25 -Start Nuvaring 06/03/25 -Reports heavy bleeding during menstrual cycles d/t PCOS, denies control, wants to get . Recommended follow-up with CAT DOG OR OTHER PET GROOMER for further options 06/12/25 -Start Metformin 500 MG 06/12/25 Assessment & Plan (08/29/2023 8:55 AM EST): Likely due to PCOS, previously followed by Pat Prasad CNM -negative endometrial for malignancy or hyperplasia biopsy with Dr. Rizvi 2020 -IS 2020 showed multiple follicular cysts consistent with PCOS -Mirena IUD placed [address] Rizvi -Testosterone 07/20/2023 elevated at 72 Encounters Date Type Department Care Team Description 06/12/2025 5:40 PM EDT Office Visit [facility] [address] [place] [phone] Minerva Mancuso MD Wheeze (Primary Dx); Abnormal uterine bleeding; Family planning; PCOS (polycystic ovarian syndrome); Dyslipidemia; Class 2 obesity due to excess calories without serious comorbidity with body mass index (BMI) of 35.0 to 35.9 in adult; Dietary counseling; Exercise counseling 06/12/2025 Travel 06/04/2025 Results Follow-Up [facility] [address] [place] [phone] Minerva Mancuso MD Hemoglobin A1c, Hepatic Function Panel, Lipid Panel, Standard, Additional followed-up results: 7 06/03/2025 11:30 AM EDT Office Visit [facility] [address] [place] [phone] Minerva Mancuso MD Migraine with aura and without status migrainosus, not intractable (Primary Dx); Chronic tension-type headache, not intractable; Gastroesophageal reflux disease, unspecified whether esophagitis present; Daytime somnolence; Snoring; Family planning; Anxiety; Other specified health status; Encounter for IUD removal 06/03/2025 Travel 05/31/2025 Telephone [facility] [address] [place] [phone] Minerva Mancuso MD CHART PREP 05/30/[address] [phone] Minerva Mancuso MD 05/30/2025 Telephone [facility] [address] [place] [phone] Minerva Mancuso MD 05/27/2025 Travel 05/10/2025 Orders Only [facility] [address] [place] [phone] Minerva Mancuso MD Dyslipidemia (Primary Dx); PCOS (polycystic ovarian syndrome); Abnormal uterine bleeding; History of anemia; Vitamin D deficiency 05/01/2025 Travel 05/01/2025 Telephone [facility] [address] [place] [phone] Yesi Palmer MA 04/25/2025 Patient Outreach [facility] [address] [place] [address] Minerva Mancuso MD Pre-visit Planning (SDOH negative. Tobacco screening negative. ) 04/18/2025 1:00 PM EDT Office Visit [facility] [address] [place] [address] Wilma Vazquez Dental caries (Primary Dx) 04/18/2025 Travel 04/17/2025 11:00 AM EDT Office Visit [facility] [address] [place] [address] Wilma Vazquez Dental caries (Primary Dx) from Last 3 Months Immunizations Immunization Administration Dates Next Due Hep B, adult 06/29/2023 Influenza injectable quadrivalent preservative f ree 06/29/2023,09/19/2018 Pfizer Covid-19 Vaccine 12+ 08/26/2021, Tdap 03/22/2018 Social History Tobacco Use Types Packs/Day Years Used Date Smoking Tobacco: Former Passive Smoke Exposure: Past Smokeless Tobacco: Never Tobacco Cessation:Counseling Given: Not Answered Alcohol Use Standard Drinks/Week Comments Never 0 [...] Date Recorded Patient Health Questionnaire-2 Score 0 06/03/2025 Internet Access Answer Date Recorded Internet Access Q1 Yes 04/25/2025 Internet Access Q2 Not on file 04/25/2025 Comments No Intention Date Recorded Wants to become (finding) 06/03 Sex and Gender Information Value Date Recorded Sex Assigned at Female 08/09/2022 10:26 AM EDT Legal Sex Female 10:26 AM EDT Gender Identity Female 08/09/2022 10:26 AM EDT Sexual Orientation Straight 08/09/2022 10 :26 AM EDT Last Filed Vital Signs Vital Sign Reading Time Taken Comments Blood Pressure 130/82 06/12/2025 5:44 PM EDT Pulse 89 06/12/2025 5:44 PM EDT Temperature 37.2 C (98.9 F) 06/12/2025 5:44 PM EDT Respiratory Rate 24 06/12/2025 5:44 PM EDT Oxygen Saturation 98% 06/12/2025 5:44 PM EDT Inhaled Oxygen Concentration - - Weight 92.6 kg (204 lb 2 oz) 06/12/2025 5:44 PM EDT Height 162.6 cm (5' 4 ) 06/12/2025 5:44 PM EDT Body Mass Index 35.04 06/12/2025 5:44 PM EDT Plan of Treatment Upcoming Encounters Date Type Department Care Team (Late st Contact Info) Description 08/16/2025 9:00 AM EST Procedure Visit [facility] [address] [place] [address] Minerva Mancuso MD [address], [place] [phone] Health Maintenance Due Date Last Done Comments Dental Oral Exam 1995 Dental Prophylaxis 1995 Dental X-Ray: Full Mouth 1995 HPV Vaccines (1 - 3-dose series) 2010 Hepatitis B Vaccines (2 of 3 - 19+ 3-dose series) 07/27/2023 06/29/2023 HPV/Cotest 06/29/2024 06/29/2023, 09/14/2017 COVID-19 Vaccine (3 - 2024-2 6 season) 2025 08/26/2021, 08/05/2021 Influenza Vaccine (#1) 2025 , 09/19/2018 Dental X-Ray: Bitewings 04/18/2026 04/17/2025 SDOH Screening 04/25/2026 04/25/2025 Alcohol/Substance Use Screening 06/03/2026 06/03/2025 Depression Screening 06/03/2026 06/03/2025, 06/29/2023 Disability Screening 06/03/2026 06/03/2025 Family Planning (PISQ) 06/03/2026 06/03/2025 Tobacco Screening 06/12/2026 06/12/2025 Pap Smear 06/29/2026 06/29/2023, 09/14/2017 DTaP/Tdap/Td Vaccines (2 - T d or Tdap) 03/22/2028 03/22/2018 Lipid Panel 06/03/2030 06/03/2025, 07/20/2023 Zoster Vaccines (1 of 2) 2045 RSV Patients and Patients Aged 60 years or older (1 - 1-dose 75+ series) 2070 HIV Screening Completed 07/20/2023, 09/14/2017 Hepatitis C Screening Completed 07/20/2023 , 09/14/2017 HIB Vaccines Aged Out No longer eligi ble based on patient's age to complete this topic Hepatitis A Vaccines Aged Out No long er eligible based on patient's age to complete this topic IPV Vaccines Aged Out No longer eligi ble based on patient's age to complete this topic Meningococcal B Vaccine Aged Out No l onger eligible based on patient's age to complete this topic Meningococcal Vaccine Aged Out No nadiya porsche eligible based on patient's age to complete this topic Pneumococcal Vaccine: Pediatrics (0 to 5 Years) and At-Risk Patients (6 to 49) Years Aged Out No longer eligible b ased on patient's age to complete this topic RSV under 20 months Aged Out No longe r eligible based on patient's age to complete this topic Rotavirus Vaccines Aged Out No longer eligible based on patient's age to complete this topic Procedures Procedure Name Priority Date/Time Associated Diagnosis Comments POCT INFLUENZA B (ID NOW RAPID MOLECULAR) Routine 06/12/2025 6:02 PM EDT Wheeze POCT COVID-19 AG CHOWDHURY ID NOW Routine 06/12/2025 6:01 PM EDT Wheeze POCT INFLUENZA A (ID NOW RAPID MOLECULAR) Routine 06/12/2025 6:01 PM EDT Wheeze ID REMOVAL INTRAUTERINE DEVICE IUD Routine 06/03/2025 11:30 AM EDT Encounter for IUD removal VITAMIN B12/FOLATE, SERUM PANEL Routine 06/03/2025 11:11 AM EDT Abnormal uterine bleeding IRON AND TOTAL IRON BINDING CAPACITY Routine 06/03/2025 11:11 AM EDT Abnormal uterine bleeding FERRITIN Routine 06/03/2025 11:11 AM EDT Abnormal uterine bleeding VITAMIN D,25-OH,TOTAL,IA Routine 06/03/2025 11:11 AM EDT Vitamin D deficiency CBC WITH AUTO DIFFERENTIAL Routine 06/03/2025 11:11 AM EDT Abnormal uterine bleeding TSH W/REFLEX TO FT4 Routine 06/03/2025 1 1:11 AM EDT Abnormal uterine bleeding BASIC METABOLIC PANEL Routine 06/03/2025 11:11 AM EDT PCOS (polycystic ovarian syndrome) LIPID PANEL, STANDARD Routine 06/03/2025 11:11 AM EDT Dyslipidemia HEPATIC FUNCTION PANEL Routine 06/03/2025 11:11 AM EDT Dyslipidemia HEMOGLOBIN A1C Routine 06/03/2025 11:11 AM EDT PCOS (polycystic ovarian syndrome) 30 MO RESIN-BASED COMPOSITE - 2 SURF, POSTERIOR Routine 04/18/2025 1:00 PM EDT Dental caries CASE PRESENTATION, DETAILED AND EXTENSIVE TREATMENT PLANNING Routine 04/18/2025 1:00 PM EDT BITEWING - SINGLE RADIOGRAPHIC IMAGE Routine 04/17/2025 11:00 AM EDT 30 INTRAORAL - PERIAPICAL FIRST RADIOGRAPHIC IMAGE Routine 04/17/2025 11:00 AM EDT Dental caries 30 LIMITED ORAL EVALUATION - PROBLEM FOCUSED Routine 04/17/2025 11:00 AM EDT HEPATITIS C ANTIBODY Routine 07/20/2023 11:59 AM EDT Routine screening for STI (sexually transmitted infection) HIV ANTIBODY/ANTIGEN ([place] [facility]) Routine 07/20/2023 11:59 AM EDT HPV MRNA E6/E7 REFLEX TO HPV 16, 18/45 Routine 06/29/2023 11:09 AM EDT PAP SMEAR Routine 06/29/2023 11:09 AM EDT from Last 3 Months or Most Recently Relevant to Health Maintenance Results * POCT Rapid Influenza B CHOWDHURY ID NOW (06/12/2025 6:02 PM EDT) [facility] Influenza B Negative Negative, Indeterminate [facility] QC Media Lot # [id number] [facility] Lot# Expiration Date [facility] Swab 06/12/2025 6:02 PM EDT Minerva Mancuso MD POINT OF CARE TEST ENTER/E DIT ORDERABLES Final Result Performing Organization Address City/[facility]/ZIP Co de Phone Number [facility] [address] [place] [phone] * POCT Rapid Influenza A CHOWDHURY ID NOW (06/12/2025 6:01 PM EDT) Pathologist [facility] Influenza A Negative Negative, Indeterminate [facility] QC Media Lot # [id number] [facility] Lot# Expiration Date [facility] Swab 06/12/2025 6:01 PM EDT Minerva Mancuso MD POINT OF CARE TEST ENTER/E DIT ORDERABLES Final Result Performing Organization Address City/[facility]/ZIP Co de Phone Number [facility] [address] [place] [phone] * POCT Rapid Covid-19 CHOWDHURY ID NOW (06/12/2025 6:01 PM EDT) Pathologist [facility] Coronavirus Antigen PCR Negative Negative, Indeterminate, None Detected, Invalid, Specimen unsatisfactory for evaluation, Weakly Positive, 2+ QC Media Lot # [id number] Lot# Expiration Date Swab 06/12/2025 6:01 PM EDT Minerva Mancuso MD POINT OF CARE TEST ENTER/E DIT ORDERABLES Final Result * ID REMOVAL INTRAUTERINE DEVICE IUD (06/03/2025 11:30 AM EDT) Narrative Minerva Mancuso MD - 06/03/2025 11:30 AM EDT Minerva Mancuso MD 06/04/2025 8:56 AM IUD Management Performed by: Minerva Mancuso MD Authorized by: Minerva Mancuso MD Procedure: IUD removal Consent obtained by patient, parent, or legal power of document review attorney - including discussion of procedure risks and benefits, patient questions answered, and patient education provided: yes Reason for removal: patient request Strings visualized: yes Cervix cleaned with: iodopovidone Tenaculum applied to cervix: no Cervix manually dilated: no IUD grasped by forceps: yes Performed with ultrasound guidance: no IUD removed: yes Removed without complications: yes IUD intact: yes Minerva Mancuso MD IN CLINIC/BEDSIDE ORDERABL ES Final Result * Vitamin D, 25-Hydroxy, Total, Immunoassay (06/03/2025 11:11 AM EDT) Pathologist [facility] Vitamin D 25-OH Total 40.5 >30 ng/mL [facility] Comment: Health Based Reference Values*< 20 ng/mL [id number] ng/mL Insufficient> 30 ng/mL Sufficient*Isael CONCEPCION. N Engl J Med. 2007;357:266-280There is no well-established upper level of normal vitamin Dlevels. Some laboratories use 50 ng/mL as an upper limit ofnormal. However, toxicity is patient-dependent and may occurat any level. Careful correlation with the patient'spresentation is necessary and, if there is concern forvitamin D toxicity, treatment should be consideredirrespective of the serum level.Care must be taken in interpreting Vitamin D results fromdifferent laboratories and methodologies. Published datademonstrated that results from patients undergoinghemodialysis may show a negative bias when tested withvarious automated 25-OH vitamin D assays when compared toLC-MS/MS.When testing samples from patients whose predominant form ofVitamin D is Vitamin D2, such as patients receiving VitaminD2 supplementation, results that are subtherapeutic shouldbe confirmed with another method such as LC-MS/MS. Blood 06/03/2025 11:1 1 AM EDT 06/03/2025 1:28 PM EDT Minerva Mancuso MD LAB BLOOD ORDERABLES Final Result Performing Organization Address City/[facility]/ZIP Co de Phone Number [facility] [address] [place] [address] [phone] * Vitamin B12 (Cobalamin) and Folate Panel, Serum (06/03/2025 11:11 AM EDT) Pathologist [facility] Vitamin B12 401 200 - 900 pg/mL [facility] Comment:NORMAL 200-900 PG/ML INDETERMINATE 160-199 PG/ML DEFICIENT < 160 PG/ML Folate 6.8 > or = 4.0 ng/mL [facility] Comment:Reference Values:> o r = 4.0 ng/mL< 4.0 ng/mL suggests folate deficiency Methotrexate, aminopterin and folinic acid(leucovorin) are chemotherapeutic agents whose molecularstructures are similar to folate; therefore, the Architectfolate assay cannot be used for patients using these drugs. Blood Venous blood specimen / Unknown 06/03/2025 11:11 AM EDT 06/03/2025 1:28 PM EDT Minerva Mancuso MD LAB BLOOD ORDERABLES Final Result Performing Organization Address [facility]/ZIP Co de Phone Number [facility] [address] [place] [phone] * TSH with Reflex to Free T4 (06/03/2025 11:11 AM EDT) Pathologist [facility] TSH reflex Free T4 1.81 0.32 - 4.0 uIU/mL [facility] Blood 06/03/2025 11:1 1 AM EDT 06/03/2025 1:28 PM EDT Minerva Mancuso MD LAB BLOOD ORDERABLES Final Result Performing Organization Address [facility]/ZIP Co de Phone Number [facility] [address] [place] [address] [phone] * CBC auto differential (06/03/2025 11:11 AM EDT) White Blood Count 8.4 4.8 - 10.8 X10*3/uL [facility] Red Blood Count 4.55 4.20 - 5.50 X10*6/uL [facility] Hemoglobin 14.7 12.0 - 16.0 g/dl [facility] Hematocrit 44.2 37.0 - 47.0 % [facility] Mean Corpuscular Volume 97.1 80.0 - 98.0 fL [facility] Mean Corpuscular Hemoglobin 32.3 27.0 - 33.0 pg [facility] Mean Corpuscular HGB Conc 33.3 31.0 - 35.0 g/dl [facility] Red Cell Distribution Width 11.9 11.0 - 16.0 % [facility] Platelet Count 301 160 - 400 X10*3/uL [facility] Mean Platelet Volume 10.3 9.4 - 12.3 fL [facility] Neutrophils Percent Auto 72.3 45 - 73 % [facility] Imm Gran Pct Auto 0.2 0.0 - 0.4 % [facility] Lymphocytes Percent Auto 21.9 20 - 40 % [facility] Monocytes Percent Auto 5.0 2 - 11 % [facility] Eosinophils Percent Auto 0.4 0 - 4 % [facility] Basophils Percent Auto 0.2 0 - 2 % [facility] NRBC Pct Auto 0.0 0.0 - 0.2 /100WBC [facility] Neutrophils Absolute Auto 6.1 2.0 - 8.3 x10*3/uL [facility] Imm Gran Abs Auto 0.02 0.00 - 0.03 X10*3/uL [facility] Lymphocytes Absolute Auto 1.8 1.2 - 4.9 X10*3/uL [facility] Monocytes Absolute Auto 0.4 0.1 - 1.2 X10*3/uL [facility] Eosinophils Absolute Auto 0.0 0.0 - 0.4 X10*3/uL [facility] Basophils Absolute Auto 0.0 0.0 - 0.2 X10*3/uL [facility] NRBC Abs Auto 0.000 0.0 - 0.012 X10*3/uL [facility] Blood Venous blood specimen / Unknown 06/03/2025 11:11 AM EDT 06/03/2025 1:28 PM EDT Minerva Mancuso MD LAB BLOOD ORDERABLES Final Result Performing Organization Address [facility]/ZIP Co de Phone Number [facility] [address] [place] [phone] * Iron And Total Iron Binding Capacity (06/03/2025 11:11 AM EDT) Iron 78 30 - 160 mcg/dL [facility] Total Iron Binding Capacity 289 228 - 428 mcg/dL [facility] Percent Iron Saturation 27 15 - 50 % [facility] Unsaturated Iron Binding 211 ug/dL [facility] Blood Venous blood specimen / Unknown 06/03/2025 11:11 AM EDT 06/03/2025 1:28 PM EDT Minerva Mancuso MD LAB BLOOD ORDERABLES Final Result Performing Organization Address [facility] Phone Number [facility] [facility] [address] [place] [phone] * Hemoglobin A1c (06/03/2025 11:11 AM EDT) Hemoglobin A1c 5.5 <6.0 % [facility] Comment:Hemoglobin A1C Refer ence Range Adults: 4.8 - 6.0 % Non diabetic: < 6.0 % Goal: < 7.0 %Additional Action Suggested: > 8.0 %Note: Hemoglobin A1c results are invalid for patients with abnormal amounts of HbF. Blood transfusions may impact the HbA1c concentration in the patient sample. Estimated Average Glucose 111 mg/dL [facility] Comment:eAG = Estimated ave rage glucose which is %A1C expressed asaverage glucose, using the formula of the L7U-CjacytsJjcvxyh Glucose study (ADAG), Diabetes Care, Vol.31,#8,2007 Blood Venous blood specimen / Unknown 06/03/2025 11:11 AM EDT 06/03/2025 1:28 PM EDT Minerva Mancuso MD LAB BLOOD ORDERABLES Final Result Performing Organization Address City/[facility]/ZIP Co de Phone Number [facility] [address] [place] [phone] * Ferritin (06/03/2025 11:11 AM EDT) Pathologist [facility] Ferritin 96 10 - 122 ng/mL [facility] Blood Venous blood specimen / Unknown 06/03/2025 11:11 AM EDT 06/03/2025 1:28 PM EDT Minerva Mancuso MD LAB BLOOD ORDERABLES Final Result Performing Organization Address [facility] Co de Phone Number [facility] [address] [place] [phone] * (ABNORMAL) Hepatic Function Panel (06/03/2025 11:11 AM EDT) Bilirubin, Total 0.4 0.0 - 1.0 mg/dL [facility] Bilirubin, Direct 0.2 0.0 - 0.5 mg/dL [facility] Aspartate Amino Transferase 27 5 - 31 U/L [facility] Alanine Aminotransferase 41(H) 0 - 31 U/L [facility] Total Protein 7.3 6.5 - 8.0 g/dL [facility] Albumin Level 4.4 3.5 - 5.0 g/dL [facility] Alkaline Phosphatase 67 39 - 117 U/L [facility] Blood Venous blood specimen / Unknown 06/03/2025 11:11 AM EDT 06/03/2025 1:28 PM EDT Minerva Mancuso MD LAB BLOOD ORDERABLES Final Result Performing Organization Address City/[facility]/ZIP Co de Phone Number [facility] [address] [place] [phone] * (ABNORMAL) Lipid Panel, Standard (06/03/2025 11:11 AM EDT) Triglycerides 118 <150 mg/dL [facility] Comment:Desirable Triglyceri de: less than 150 mg/dLBorderline High Triglyceride 150-199 mg/dLHigh Triglyceride: 200-499 mg/dLVery High Triglyceride: greater than or equal to 5OO mg/dL Cholesterol 227(H) <200 mg/dL [facility] Comment:Desirable Cholestero l: less than 200 mg/dLBorderline High Cholesterol: 200-239 mg/dLHigh Cholesterol: greater than 239 mg/dL LDL Cholesterol Calculated 159(H) <100 mg/dL [facility] Comment:Desirable LDL: less than 100 mg/dLNear Optimal/Above Optimal LDL: 110- 129 mg/dLBorderline High LDL: 130-159 mg/dLHigh LDL: 160-189 mg/dLVery High LDL: greater than or equal to 190 mg/dL HDL Cholesterol 45 >40 mg/dL [facility] Comment:Desirable HDL: great er than 40 mg/dL Note: This HDL assay may give artificially low results in patients with liver disease. Blood Venous blood specimen / Unknown 06/03/2025 11:11 AM EDT 06/03/2025 1:28 PM EDT Minerva Mancuso MD LAB BLOOD ORDERABLES Final Result [facility] [address] [place] [phone] * Basic Metabolic Panel (06/03/2025 11:11 AM EDT) Sodium 138 135 - 145 mmol/L [facility] Potassium 3.7 3.3 - 5.1 mmol/L [facility] Chloride 102 96 - 108 mmol/L [facility] Carbon Dioxide 27 22 - 29 mmol/L [facility] Anion Gap 13 12 - 20 [facility] Urea Nitrogen (BUN) 12 9 - 16 mg/dL [facility] Creatinine, Serum 0.73 0.5 - 1.4 mg/dL [facility] Estimated Glomerular Filt Rate >60 [facility] Comment:Chronic Kidney Disea se: Estimated GFR < 60 mL/min/1.23k7Dxhisy Kidney Disease: Estimated GFR < 15 mL/min/1.73m2 Glucose 102 60 - 115 mg/dL [facility] Calcium 9.2 8.4 - 10.2 mg/dL [facility] Blood Venous blood specimen / Unknown 06/03/2025 11:11 AM EDT 06/03/2025 1:28 PM EDT Minerva Mancuso MD LAB BLOOD ORDERABLES Final Result Performing Organization Address [facility] Co de Phone Number [facility] [address] [place] [phone] * Hepatitis C Ab (07/20/2023 11:59 AM EDT) Hepatitis C Antibody Nonreactive Nonreactive [facility] Comment:Antibodies to HCV no t detected; does not exclude early acuteHCV infection. Blood 07/20/2023 11:5 9 AM EDT 07/20/2023 1:11 PM EDT Minerva Mancuso MD LAB BLOOD ORDERABLES Final Result Performing Organization Address [facility]/ZIP Co de Phone Number [facility] [address] [place] [phone] * HIV Ab/Ag (MATTEO COULTER) (07/20/2023 11:59 AM EDT) HIV AB/AG Nonreactive Nonreactive [facility] Comment:HIV-1 p24 Ag and/or HIV-1/HIV-2 Ab not detected.A test result that is nonreactive does not exclude thepossibility of exposure to or infection with HIV-1 and/orHIV-2. Nonreactive results in this assay for individualswith prior exposure to HIV-1 and/or HIV-2 may be due toantigen and antibody levels that are below the limit ofdetection of this assay.The [employer] HIV Ag/Ab Combo assay result andsupplemental assay results should be interpreted inconjunction with the patient's clinical presentation,history and other laboratory results. If the results areinconsistent with clinical evidence, additional testing issuggested to confirm the result. 07/20/2023 11:5 9 AM EDT 07/20/2023 1:11 PM EDT us Minerva Mancuso MD LAB BLOOD ORDERABLES Final Result [facility] [address] [place] [phone] * HPV mRNA E6/E7 w/Reflex to HPV Genotypes 16, 18/45 (06/29/2023 11:09 AM EDT) HPV nRNA E6/E7 Not Detected Not Detected [facility] Comment:Methodology: Transcr iption-Mediated AmplificationThis assay detects E6/E7 viral messenger RNA (mRNA) from 14high-risk HPV types (16,18,31,33,35,39,45,51,52,56,58,59,66,68).Cervical sources are required for HPV testing.If a vaginal source from a patient who has had atotal hysterectomy with removal of cervix wassubmitted, please contact the testing laboratoryfor alternative testing options.For additional information, please refer [email or web address](This link if provided for information/educational purposes only.)THIS TEST WAS PERFORMED AT:[facility] [place] [phone] MCCOY MD HPV mRNA E6/E7 TNP [facility] HPV 16 RNA [facility] HPV 18/45 RNA [facility] 06/29/2023 11:0 9 AM EDT 06/30/2023 8:45 AM EDT Minerva Mancuso MD LAB CYTOLOGY ORDERABLES nal Result [facility] [address] [place] [phone] * Pap Smear (06/29/2023 11:09 AM EDT) 06/29/2023 11:0 9 AM EDT 06/30/2023 8:45 AM EDT Narrative [facility] - 07/11/2023 6:00 PM EDT ----- ------- Name: Henna Le Age/Sex: 27/F : 1995 Unit#: [id number] Attend Dr: Minerva Mancuso MD Re06/29/23 Status: DEP REF Location: [facility] Disch: ----- ------- SPEC : [id number] RECD: 06/30/23 STATUS: MY SCHULTZ NUM: [id number] ALLIE: 06/29/23-[address]: Minerva Mancuso MD ENTERED: 06/30/23 SP TYPE: Pap Smr OTHR DR: ORDERED: Pap Smear Interpretation General Category: Negative for intraepithelial lesion/malignancy. Adequacy: Endocervical/transformation zone component present. Interpretation: Reactive cellular changes. HPV mRNA E6/E7: NOT DETECTED This assay detects E6/E7 viral messenger RNA (mRNA) from 14 high-risk HPV types (16, 18, 31, 33, 35, 39, 45, 51, 52, 56, 58, 59, 66, 68) HPV testing performed by [employer], [place], [place]. See reference laboratory pion of the EMR for entire report. Clinical Information LMP: Unknown date Previous PAP test: Unknown date/findings Other surgery: LEEP 2020 Material Received ThinPrep-Vaginal ----- ------- Signed (signature on file) Hodan Kelso 07/11/23 1800 ----- ------- END OF REPORT Minerva Mancuso MD LAB CYTOLOGY ORDERABLES nal Result [facility] [address] [place] [phone] from Last 3 Months or Most Recently Relevant to Health Maintenance [place] [address] [place] [address] [email or web address] 2 DENTAL - HSN PARTIAL (MEDICAID) Care Teams Mechanical Assembly Relationship Specialty Start Date End Date [place], [place] Minerva [address] [place] [phone] PCP - General Family Medicine 04/26/22 Hermes Rizvi MD [address] [place] [phone] Obstetrics and Gynecology 11/06/24
--- OUTSIDE RECORDS SUMMARY | 2025-07-08 08:44 | XMS_ITS | Encounter Summary ---
Author Organization [employer] Address [address] [facility] [address] [place] [address] Care Team Providers Care College Athlete Name Role Phone Minerva Mancuso MD Primary Care Provider [phone] Hermes Rizvi MD Unavailable Encounter Details Date Type Department Care Team (Late st Contact Info) Description 05/10/2025 Orders Only [facility] [address] [place], [place] [phone] Minerva Mancuso MD [address] [place], [place] [phone] Dyslipidemia (Primary Dx); PCOS (polycystic ovarian syndrome); Abnormal uterine bleeding; History of anemia; Vitamin D deficiency Social History Tobacco Use Types Packs/Day Years [...] AM EDT documented as of this encounter Plan of Treatment Upcoming Encounters Date Type Department Care Team ([facility] st Contact Info) Description 08/16/2025 9:00 AM EST Procedure Visit [facility] [address] [place], [place] [phone] Minerva Mancuso MD [address] [place] [address] Scheduled Orders Name Type Priority Associated Diagnoses Orde r Schedule CBC auto differential Lab Routine Abnormal uterine bleeding Expected: 05/10/2025 (Approximate), Expires: 05/10/2026 documented as of this encounter Procedures Procedure Name Priority Date/Time Associated Diagnosis Comments VITAMIN D,25-OH,TOTAL,IA Routine 06/03/2025 11:11 AM EDT Vitamin D deficiency VITAMIN B12/FOLATE, SERUM PANEL Routine 06/03/2025 11:11 AM EDT Abnormal uterine bleeding TSH W/REFLEX TO FT4 Routine 06/03/2025 1 1:11 AM EDT Abnormal uterine bleeding CBC WITH AUTO DIFFERENTIAL Routine 06/03/2025 11:11 AM EDT Abnormal uterine bleeding IRON AND TOTAL IRON BINDING CAPACITY Routine 06/03/2025 11:11 AM EDT Abnormal uterine bleeding HEMOGLOBIN A1C Routine 06/03/2025 11:11 AM EDT PCOS (polycystic ovarian syndrome) FERRITIN Routine 06/03/2025 11:11 AM EDT Abnormal uterine bleeding HEPATIC FUNCTION PANEL Routine 06/03/2025 11:11 AM EDT Dyslipidemia LIPID PANEL, STANDARD Routine 06/03/2025 11:11 AM EDT Dyslipidemia BASIC METABOLIC PANEL Routine 06/03/2025 11:11 AM EDT PCOS (polycystic ovarian syndrome) documented in this encounter Results * Vitamin B12 (Cobalamin) and Folate Panel, Serum (06/03/2025 11:11 AM EDT) Vitamin B12 401 200 - 900 pg/mL [facility] Comment:NORMAL 200-900 PG/ML INDETERMINATE 160-199 PG/ML DEFICIENT < 160 PG/ML Folate 6.8 > or = 4.0 ng/mL [facility] Comment:Reference Values:> o r = 4.0 ng/mL< 4.0 ng/mL suggests folate deficiency Methotrexate, aminopterin and folinic acid(leucovorin) are chemotherapeutic agents whose molecularstructures are similar to folate; therefore, the Architectfolate assay cannot be used for patients using these drugs. Blood Venous blood specimen / Unknown 06/03/2025 11:11 AM EDT 06/03/2025 1:28 PM EDT us Minerva Mancuso MD LAB BLOOD ORDERABLES Final Result [facility] [address] [place] [phone] * Iron And Total Iron Binding Capacity (06/03/2025 11:11 AM EDT) Iron 78 30 - 160 mcg/dL [facility] Total Iron Binding Capacity 289 228 - 428 mcg/dL [facility] Percent Iron Saturation 27 15 - 50 % [facility] Unsaturated Iron Binding 211 ug/dL [facility] Blood Venous blood specimen / Unknown 06/03/2025 11:11 AM EDT 06/03/2025 1:28 PM EDT Minerva Mancuso MD LAB BLOOD ORDERABLES Final Result Performing Organization Address City/[facility]/ZIP Co de Phone Number [facility] [address] [place] [phone] * Ferritin (06/03/2025 11:11 AM EDT) Ferritin 96 10 - 122 ng/mL [facility] Blood Venous blood specimen / Unknown 06/03/2025 11:11 AM EDT 06/03/2025 1:28 PM EDT Minerva Mancuso MD LAB BLOOD ORDERABLES Final Result Performing Organization Address City/[facility] Co de Phone Number [facility] [address] [place] [phone] * Vitamin D, 25-Hydroxy, Total, Immunoassay (06/03/2025 11:11 AM EDT) Vitamin D 25-OH Total 40.5 >30 ng/mL [facility] Comment: Health Based Reference Values*< 20 ng/mL [id number] ng/mL Insufficient> 30 ng/mL Sufficient*Isael CONCEPCION. N [...] 1 AM EDT 06/03/2025 1:28 PM EDT us Minerva Mancuso MD LAB BLOOD ORDERABLES Final Result [facility] [address] [place] [phone] * CBC auto differential (06/03/2025 11:11 AM EDT) White Blood Count 8.4 4.8 - 10.8 X10*3/uL [facility] Red Blood Count 4.55 4.20 - 5.50 X10*6/uL [facility] Hemoglobin 14.7 12.0 - 16.0 g/dl [facility] Hematocrit 44.2 37.0 - 47.0 % [facility] Mean Corpuscular Volume 97.1 80.0 - 98.0 fL [facility] Mean Corpuscular Hemoglobin 32.3 27.0 - 33.0 pg [facility] Mean Corpuscular HGB Conc 33.3 31.0 - 35.0 g/dl [facility] Red Cell Distribution Width 11.9 11.0 - 16.0 % [facility] Platelet Count 301 160 - 400 X10*3/uL [facility] Mean Platelet Volume 10.3 9.4 - 12.3 fL [facility] Neutrophils Percent Auto 72.3 45 - 73 % [facility] Imm Gran Pct Auto 0.2 0.0 - 0.4 % [facility] Lymphocytes Percent Auto 21.9 20 - 40 % [facility] Monocytes Percent Auto 5.0 2 - 11 % [facility] Eosinophils Percent Auto 0.4 0 - 4 % [facility] Basophils Percent Auto 0.2 0 - 2 % [facility] NRBC Pct Auto 0.0 0.0 - 0.2 /100WBC [facility] Neutrophils Absolute Auto 6.1 2.0 - 8.3 x10*3/uL [facility] Imm Gran Abs Auto 0.02 0.00 - 0.03 X10*3/uL [facility] Lymphocytes Absolute Auto 1.8 1.2 - 4.9 X10*3/uL [facility] Monocytes Absolute Auto 0.4 0.1 - 1.2 X10*3/uL [facility] Eosinophils Absolute Auto 0.0 0.0 - 0.4 X10*3/uL [facility] Basophils Absolute Auto 0.0 0.0 - 0.2 X10*3/uL [facility] NRBC Abs Auto 0.000 0.0 - 0.012 X10*3/uL [facility] Blood Venous blood specimen / Unknown 06/03/2025 11:11 AM EDT 06/03/2025 1:28 PM EDT Minerva Mancuso MD LAB BLOOD ORDERABLES Final Result [facility] [address] [place] [phone] * TSH with Reflex to Free T4 (06/03/2025 11:11 AM EDT) TSH reflex Free T4 1.81 0.32 - 4.0 uIU/mL [facility] Blood 06/03/2025 11:1 1 AM EDT 06/03/2025 1:28 PM EDT Minerva Mancuso MD LAB BLOOD ORDERABLES Final Result [facility] [address] [place] [phone] * Basic Metabolic Panel (06/03/2025 11:11 AM EDT) Pathologist [facility] Sodium 138 135 - 145 mmol/L [facility] Potassium 3.7 3.3 - 5.1 mmol/L [facility] Chloride 102 96 - 108 mmol/L [facility] Carbon Dioxide 27 22 - 29 mmol/L [facility] Anion Gap 13 12 - 20 [facility] Urea Nitrogen (BUN) 12 9 - 16 mg/dL [facility] Creatinine, Serum 0.73 0.5 - 1.4 mg/dL [facility] Estimated Glomerular Filt Rate >60 [facility] Comment:Chronic Kidney Disea se: Estimated GFR < 60 mL/min/1.62i5Petwjl Kidney Disease: Estimated GFR < 15 mL/min/1.73m2 Glucose 102 60 - 115 mg/dL [facility] Calcium 9.2 8.4 - 10.2 mg/dL [facility] Blood Venous blood specimen / Unknown 06/03/2025 11:11 AM EDT 06/03/2025 1:28 PM EDT us Minerva Mancuso MD LAB BLOOD ORDERABLES Final Result [facility] [address] [place] [phone] * (ABNORMAL) Lipid Panel, Standard (06/03/2025 11:11 AM EDT) Pathologist [facility] Triglycerides 118 <150 mg/dL [facility] Comment:Desirable Triglyceri de: less than 150 mg/dLBorderline High Triglyceride 150-199 mg/dLHigh Triglyceride: 200-499 mg/dLVery High Triglyceride: greater than or equal to 5OO mg/dL Cholesterol 227(H) <200 mg/dL [facility] Comment:Desirable Cholestero l: less than 200 mg/dLBorderline High Cholesterol: 200-239 mg/dLHigh Cholesterol: greater than 239 mg/dL LDL Cholesterol Calculated 159(H) <100 mg/dL [facility] Comment:Desirable LDL: less than 100 mg/dLNear Optimal/Above Optimal LDL: 110- 129 mg/dLBorderline High LDL: 130-159 mg/dLHigh LDL: 160-189 mg/dLVery High LDL: greater than or equal to 190 mg/dL HDL Cholesterol 45 >40 mg/dL [facility] Comment:Desirable HDL: great er than 40 mg/dL Note: This HDL assay may give artificially low results in patients with liver disease. Blood Venous blood specimen / Unknown 06/03/2025 11:11 AM EDT 06/03/2025 1:28 PM EDT Minerva Mancuso MD LAB BLOOD ORDERABLES Final Result Performing Organization Address [facility]/ZIP Co de Phone Number [facility] [address] [place] [phone] * (ABNORMAL) Hepatic Function Panel (06/03/2025 11:11 AM EDT) Bilirubin, Total 0.4 0.0 - 1.0 mg/dL [facility] Bilirubin, Direct 0.2 0.0 - 0.5 mg/dL [facility] Aspartate Amino Transferase 27 5 - 31 U/L [facility] Alanine Aminotransferase 41(H) 0 - 31 U/L [facility] Total Protein 7.3 6.5 - 8.0 g/dL [facility] Albumin Level 4.4 3.5 - 5.0 g/dL [facility] Alkaline Phosphatase 67 39 - 117 U/L [facility] Blood Venous blood specimen / Unknown 06/03/2025 11:11 AM EDT 06/03/2025 1:28 PM EDT Minerva Mancuso MD LAB BLOOD ORDERABLES Final Result Performing Organization Address City/[facility]/ZIP Co de Phone Number [facility] [address] [place] [phone] * Hemoglobin A1c (06/03/2025 11:11 AM EDT) Hemoglobin A1c 5.5 <6.0 % [facility] Comment:Hemoglobin A1C Refer ence Range Adults: 4.8 - 6.0 % Non diabetic: < 6.0 % Goal: < 7.0 %Additional Action Suggested: > 8.0 %Note: Hemoglobin A1c results are invalid for patients with abnormal amounts of HbF. Blood transfusions may impact the HbA1c concentration in the patient sample. Estimated Average Glucose 111 mg/dL [facility] Comment:eAG = Estimated ave rage glucose which is %A1C expressed asaverage glucose, using the formula of the I4N-VifthinXmqirps Glucose study (ADAG), Diabetes Care, Vol.31,#8,May. 2007 Blood Venous blood specimen / Unknown 06/03/2025 11:11 AM EDT 06/03/2025 1:28 PM EDT us Minerva Mancuso MD LAB BLOOD ORDERABLES Final Result [facility] [address] [place] [phone] documented in this encounter Visit Diagnoses Diagnosis Dyslipidemia- Primary Other and unspecified hyperlipidemia PCOS (polycystic ovarian syndrome) Polycystic ovaries Abnormal uterine bleeding Unspecified disorder of menstruation and other abnormal bleeding from female genital tract History of anemia Personal history of diseases of blood and blood-forming organs Vitamin D deficiency documented in this encounter Additional Health Concerns Assessment Noted Time PHQ-9 Depression Total Score: 0 06/29/20 23 10:27 AM EDT documented as of this encounter Care Teams [employer] Athlete Relationship Specialty Start Date End Date Minerva Mancuso MD [address] [place] [phone] PCP - General Family Medicine 04/26/22 Hermes Rizvi MD [address] [place] [address] [place] [phone] Obstetrics and Gynecology 11/06/24 documented as of this encounter
--- OUTSIDE RECORDS SUMMARY | 2025-07-08 08:44 | XMS_ITS | Encounter Summary ---
Author Organization [employer] Address [address] [facility] [address] [place] [address] Care Team Providers Care Rivet Catcher Name Role Phone Minerva Mancuso MD Primary Care Provider [phone]- [phone] Hermes Rizvi MD Unavailable Encounter Details Date Type Department Care Team (Late st Contact Info) Description 10/24/2022 Abstract [facility] [address] [place], [place] [phone] Minerva Mancuso MD [address] [place] [address] Social History Tobacco Use Types Packs/Day Years Used Date Smoking Tobacco: Never Assessed Comments Unknown Sex and Gender Information Value Date Recorded Sex Assigned at Female 08/09/2022 10:26 AM EDT Legal Sex Female 10:26 AM EDT Gender Identity Female 08/09/2022 10:26 AM EDT Sexual Orientation Straight 08/09/2022 10 :26 AM EDT documented as of this encounter Miscellaneous Notes * Assessment & Plan Note - Minerva Mancuso MD - 10/24/2022 10:26 AM EST Associated Problem(s): Dysplasia of cervix, low grade (AMINAH 1) -Hx AMINAH 1 on colpo 06/16/[address] Hermes Rizvi -ISI 09/18/2021 no atypia documented in this encounter Plan of Treatment Upcoming Encounters Date Type Department Care Team (Late st Contact Info) Description 08/16/2025 9:00 AM EST Procedure Visit [facility] [address] [place] [address] Minerva Mancuso MD [address] [place] [address] documented as of this encounter Procedures Procedure Name Priority Date/Time Associated Diagnosis Comments BIOPSY CERVIX Routine 09/18/2021 COLPOSCOPY Routine 06/16/2021 HM HEPATITIS C ANTIBODY Routine 09/14/2017 HM HIV 1/2 ANTIGEN AND ANTIBODY Routine 09/14/2017 HM PAP/HPV Routine 09/14/2017 documented in this encounter Results * Biopsy cervix (09/18/2021) ImpressionMinerva Stack MD - 09/18/2021 Leep with no atypia with Dr. Rizvi [facility] Provider IN CLINIC/BEDSIDE ORDERAB LES Final Result * (ABNORMAL) Colposcopy (06/16/2021) Minerva Collazo MD - 06/16/2021 Colpo with LSIL, AMINAH 1 [facility] Provider IN CLINIC/BEDSIDE ORDERAB LES Final Result * HM Hepatitis C Antibody (09/14/2017) Hepatitis C Antibody Nonreactive Blood Historical Provider HEALTH MAINTENANCE Final Result * HIV 1/2 Antigen and Antibody (09/14/2017) HIV Ag/Ab Nonreactive Historical Provider HEALTH MAINTENANCE Final Result * (ABNORMAL) Pap Smear (09/14/2017) Pap Epithelial cell abnormality(A ) Negative for intraephithelial lesion or malignancy, Other HPV Detected us Historical Provider HEALTH MAINTENANCE Final Result documented in this encounter Visit Diagnoses Not on filedocumented in this encounter Care Teams Rivet Catcher Relationship Specialty Start Date End Date Charles Mix, MD Minerva [address] [place] [id number] PCP - General Family Medicine 04/26/22 Hermes Rizvi MD [address] [place] [phone] Obstetrics and Gynecology 11/06/24 documented as of this encounter
--- OUTSIDE RECORDS SUMMARY | 2025-07-08 08:44 | XMS_ITS | Encounter Summary ---
Author Organization [employer] Address [address] [facility] [address] [place] [address] Care Team Providers Care Limb Driver Name Role Phone Minerva Mancuso MD Primary Care Provider [phone]- [phone] Hermes Rizvi MD Unavailable Encounter Details Date Type Department Care Team (Late st Contact Info) Description 11/06/2024 Orders Only [facility] [address] [place] [phone] Minerva Mancuso MD [address] [place], [place] [phone] Social History Tobacco Use Types Packs/Day Years Used Date Smoking Tobacco: Former Smokeless Tobacco: Never Alcohol Use Standard Drinks/Week Comments Never 0 (1 standard drink = 0.6 oz pur e alcohol) Depression Answer Date Recorded Patient Health Questionnaire-9 Score 0 06/29/2023 Housing Stability Answer Date Recorded What is your housing situation today? I have kiki woodard 07/25/[address] you li ve. Do you have problems with any of the following? None of the above 07/25/2023 Food Insecurity Answer Date Recorded Within the past 12 months, y ou worried that your food would run out before you got money to buy more: Often true 07/25/2023 Within the past 12 months,th e food you bought just didn't last and you didn't have enough money to get more: Often true Transportation Answer Date Recorded In the past 12 months, has l ack of transportation kept you from medical appts, meetings, work or from getting things needed for daily living? No 07/25/2023 Utilities Answer Date Recorded In the past 12 months, has t he electric, gas, oil or water company threatened to shut off services in your home? Yes 07/19/2023 Depression Answer Date Recorded Patient Health Questionnaire-2 Score 0 06/29/2023 Comments No Sex and Gender Information Value [...] Description 08/16/2025 9:00 AM EST Procedure Visit [facility] [address] [place] [address] Minerva Mancuso MD [address] [place] [address] documented as of this encounter Visit Diagnoses Not on filedocumented in this encounter Additional Health Concerns Assessment Noted Time PHQ-9 Depression Total Score: 0 06/29/20 23 10:27 AM EDT documented as of this encounter Care Teams Limb Driver Relationship Specialty Start Date End Date Minerva Mancuso MD [address] [place] [address] PCP - General Family Medicine 04/26/22 Hermes Rizvi MD [address] [place] [address] [place] [id number] Obstetrics and Gynecology 11/06/24 documented as of this encounter
== END 2025-07-08 09:27 | disposition home or self-care (01) ==
LOC: HO.HSMS 08:24
PROVIDERS: PCP Family Medicine; Visit Provider Physician Assistant Medical
DX: G47.19 Other hypersomnia (principal)
CPT/HCPCS: 99204

== ENCOUNTER 2025-07-08 08:24 | Outpatient (REF) | payer OTHER, SELFPAY | END 2025-07-08 08:25 | disposition home or self-care (01) | LOC: HO.HKASLDS 08:24 | PROVIDERS: PCP Family Medicine; Visit Provider Physician Assistant Medical | DX: G47.19 Other hypersomnia (principal); R53.83 Other fatigue | CPT/HCPCS: 36415; 82728; 83090; 83921; 84207; 99202 ==

== ENCOUNTER 2025-07-08 09:21 | Outpatient (REF) | payer OTHER, SELFPAY ==
[2025-07-08 14:18] LABS: Ferritin 80 ng/mL (10-122)
== END 2025-07-08 09:22 | disposition home or self-care (01) ==
LOC: HO.HKASLDS 09:21
PROVIDERS: Visit Provider Physician Assistant Medical
DX: Z13.89 Encounter for screening for other disorder (principal)
CPT/HCPCS: 36415; 82728; 83090; 83921; 84207